=== PATIENT | female | born 1945 | race Caucasian/White ===

== ENCOUNTER 2019-08-14 08:06 | Emergency (ER) | payer MEDICARE ==
[2019-08-14] MEDS ORDERED: Zofran 4 MG/2 ML VIAL IV ONE (08:22)
[2019-08-14] MEDS ORDERED: Sodium Chloride 0.9% 1000 ML 1,000 ML IV STA (08:22)
[2019-08-14] MEDS ORDERED: BENTYL 20 MG PO ONE (08:24)
--- NOTE | 2019-08-14 08:31 | ERPHSYRPT ---
- History of Present Illness Time Seen by Provider: 08/14/19 08:22 Historian: patient, family Exam Limitations: no limitations Patient Subjective Stated Complaint: the patient is a 74-year-old female that has been persistent and for prior cholecystectomy, splenic repair secondary to a ruptured spleen from a mechanical fall, anxiety, depression, and asthma presents with chief complaint of nausea/vomiting and diarrhea that started around 1:30 this morning. Jitters and multiple episodes of vomiting and diarrhea that were nonbloody and nonbilious. The patient reportedly does not take anticoagulants or antiplatelet. She denies any recent sick contacts, fever , chills and started to experience diffuse abdominal pain after having multiple episodes of diarrhea and vomiting. She is to yesterday she is feeling otherwise fine until this morning when her complaints again. She's been taking anything for relief including climax her any pain medication. The abdominal pain is described as a cramping pain that is intermittent and diffuse and otherwise nonradiating. She denies any constipation, symptoms consistent with a UTI to include dysuria increased urinary frequency and bladder pressure. Her daughter accompanied her emergency department stay she decided to bring her mother evaluated after she informed her of her complaints when she woke up this morning. Timing/Duration: today Activities at Onset: none Quality: cramping Abdominal Pain Onset Location: generalized abdomen Pain Radiation: no radiation Severity of Pain-Max: mild Severity of Pain-Current: none Modifying Factors: Improves With: nothing Allergies/Adverse Reactions: No Known Drug Allergies Allergy (Unverified 08/14/19 08:31) Home Medications: Ascorbic Acid 500 mg [Vitamin C 500 MG] 1 each PO DAILY 08/14/19 [History] Bupropion HCl Xl 150 mg [Wellbutrin XL 150 MG] 150 mg PO DAILY 08/14/19 [ History] Bupropion HCl [Wellbutrin Xl] 300 mg PO DAILY 08/14/19 [History] Celecoxib 100 mg [celeBREX 100 MG] 200 mg PO DAILY PRN 08/14/19 [History] Cholecalciferol (Vitamin D3) [Vitamin D3] 1 each PO DAILY 08/14/19 [History] Citalopram Hydrobromide 20 mg* [ceLEXa 20 MG] 20 mg PO DAILY 08/14/19 [ History] Cyanocobalamin (Vitamin B-12) [Vitamin B12] 1 each PO DAILY 08/14/19 [History] Fluticasone/Vilanterol [Breo Ellipta 100-25 Mcg INH] 1 each IH DAILY 08/14/19 [ History] Magnesium Oxide 400 mg [Mag-Ox 400] 1 each PO DAILY 08/14/19 [History] Multivitamin [Multivitamins] 1 each PO DAILY 08/14/19 [History] Non-Formulary Drug [Non-Formulary Item] 1 each PO DAILY 08/14/19 [History] [place]-3 Fatty Acids/Fish Oil [Fish Oil 1,000 mg Capsule] 1 each PO DAILY [History] - Review of Systems Constitutional: No Fever, No Chills, No Fatigue Ears, Nose, & Throat: No Symptoms Respiratory: No Symptoms, No Cough, No Cyanosis, No Dyspnea Cardiac: No Chest Pain, No Palpitations, No Syncope Abdominal/Gastrointestinal: Abdominal Pain, Nausea, Vomiting, Diarrhea, No Constipation, No Hematemesis, No Hematochezia, No Melena Genitourinary Symptoms: No Dysuria, No Frequency, No Urgency Musculoskeletal: No Symptoms Skin: No Symptoms Neurological: No Symptoms, No Dizziness, No Focal Weakness, No Headache Hematologic/Lymphatic: No Symptoms - Past Medical History Pertinent Past Medical History: Yes Respiratory History: Asthma Psycho-Social History: Anxiety, Depression - Past Surgical History Past Surgical History: Yes Gastrointestinal: Cholecystectomy - Social History Smoking Status: Never smoker Exposure to second hand smoke: No Alcohol Use: None - Nursing Vital Signs Nursing Vital Signs: Initial Vital Signs Temperature 97.5 F 08/14/19 08:15 Pulse Rate 111 H 08/14/19 08:15 Respiratory Rate 16 08/14/19 08:15 Blood Pressure 131/70 08/14/19 08:15 O2 Sat by Pulse Oximetry 94 L 08/14/19 08:15 Pain Scale Pain Intensity 0 - Physical Exam General Appearance: no apparent distress, alert, other (Sitting up on the edge of the bed and appears to be in no obvious distress) Eye Exam: PERRL/EOMI, eyes nml inspection Ears, Nose, Throat Exam: normal ENT inspection, moist mucous membranes Neck Exam: normal inspection, supple Respiratory Exam: normal breath sounds, lungs clear, airway intact, No chest tenderness, No respiratory distress, No diminished breath sounds, No accessory muscle use, No prolonged expirations Cardiovascular Exam: normal heart sounds, normal peripheral pulses, tachycardia , capillary refill <2 sec, capillary refill 2-3 sec, edema, other (Bilateral 1-2 + pitting edema) Gastrointestinal/Abdomen Exam: soft, normal bowel sounds, distention, No tenderness, No ecchymosis, No rebound, No hernia Pelvic Exam: not done Rectal Exam: deferred Extremity Exam: normal inspection Neurologic Exam: alert, oriented x 3, cooperative, normal mood/affect Skin Exam: normal color, warm, dry, No rash, No petechiae, No jaundice, No abrasion SpO2 Interpretation: normal O2 Delivery: Room Air - Course Nursing assessment & vital signs reviewed: Yes EKG Interpreted by Me: RATE, Sinus Rhythm, NORMAL AXIS, Other (HR 92 bpm, LA 116 ms, QRS duration 82, QT/QTc 356/438 ms) Ordered Tests: Active Orders 24 hr Category Date Time Status EKG-ER Only STAT Care 08/14/19 08:22 Active IV Insertion STAT Care 08/14/19 08:23 Active PO Fluid Challenge STAT Care 08/14/19 09:15 Active BMP Stat Lab 08/14/19 08:40 Completed CBC W DIFF Stat Lab 08/14/19 08:40 Completed Hepatic Function Panel Stat Lab 08/14/19 08:40 Completed LIPASE Stat Lab 08/14/19 08:40 Completed Medication Summary Discontinued Medications Generic Name Dose Route Start Last Admin Trade Name Freq PRN Reason Stop Dose Admin Dicyclomine HCl 20 mg 08/14/19 08:24 08/14/19 09:26 Bentyl 20 Mg PO 08/14/19 08:25 20 mg ONCE ONE Administration Dicyclomine HCl Confirm 08/14/19 09:18 Bentyl 20 Mg Administered 08/14/19 09:19 Dose 20 mg .ROUTE .STK-MED ONE Sodium Chloride 1,000 mls @ 999 mls/hr 08/14/19 08:22 08/14/19 10:35 Sodium Chloride 0.9% 1000 Ml IV 08/14/19 09:22 Infused .Q1H1M STA Infusion Sodium Chloride Confirm 08/14/19 09:18 Sodium Chloride 0.9% 1000 Ml Administered 08/14/19 09:19 Dose 1,000 mls @ ud .ROUTE .STK-MED ONE Ondansetron HCl 4 mg 08/14/19 08:22 08/14/19 09:26 Zofran 4 Mg/2 Ml Vial IV 08/14/19 08:23 4 mg STAT ONE Administration Ondansetron HCl Confirm 08/14/19 09:18 Zofran 4 Mg/2 Ml Vial Administered 08/14/19 09:19 Dose 4 mg .ROUTE .K-MED ONE Lab/Rad Data: Laboratory Result Diagrams 08/14/19 08:40 08/14/19 08:40 Laboratory Results 08/14/19 08/14/19 Range/Units 08:40 08:40 WBC 10.4 (4.0-10.5) K/mm3 RBC 4.69 (4.1-5.4) M/mm3 Hgb 14.3 (12.0-16.0) gm/dl Hct 43.5 (35-47) % MCV 92.8 (78-100) fl MCH 30.5 (26-32) pg MCHC 32.9 (32-36) g/dl RDW 14.2 H (11.5-14.0) % Plt Count 74 L (150-450) K/mm3 MPV 13.0 H (6-9.5) fl Gran % 92.2 H (36.0-66.0) % Eos # (Auto) 0.04 (0-0.5) Absolute Lymphs (auto) 0.31 L (1.0-4.6) Absolute Monos (auto) 0.44 (0.0-1.3) Lymphocytes % 3.0 L (24.0-44.0) % Monocytes % 4.3 (0.0-12.0) % Eosinophils % 0.4 (0.00-5.0) % Basophils % 0.1 (0.0-0.4) % Absolute Granulocytes 9.55 H (1.4-6.9) Basophils # 0.01 (0-0.4) Sodium 140 (137-145) mmol/L Potassium 4.2 (3.5-5.1) mmol/L Chloride 105 (98-107) mmol/L Carbon Dioxide 23 (22-30) mmol/L Anion Gap 15.9 H (5-15) MEQ/L BUN 21 H (7-17) mg/dL Creatinine 0.72 (0.52-1.04) mg/dL Estimated GFR > 60.0 ML/MIN Glucose 183 H (74-106) mg/dL Calcium 9.3 (8.4-10.2) mg/dL Total Bilirubin 0.60 (0.2-1.3) mg/dL Direct Bilirubin 0.2 (0.0-0.4) mg/dL AST 24 (14-36) U/L ALT 22 (0-35) U/L Alkaline Phosphatase 85 (38-126) U/L Serum Total Protein 8.0 (6.3-8.2) g/dL Albumin 4.4 (3.5-5.0) g/dL Lipase 24 (23-300) U/L Slides for Path Review YES - Progress Progress: improved Progress Note: 08/14/19 09:04 nontoxic in appearance. The patient presents with nausea, vomiting and diarrhea is likely a bar of the right is given the onset of her symptoms and her exam, specifically benign abdominal exam to suggest peritonitis at this time. I will obtain screening labs and a form of a CBC, lipase, LFTs BMP and administer IV fluids and anti-medics for symptomatic relief. With the patient' s feel better able to tolerate by mouth on discharge her to follow with her primary care provider as an outpatient. I'll re-prescribe her very and likely sent home with a prescription for ondansetron. I do not suspect bacterial enteritis or c-diff colitis at this time. 08/14/19 09:06 08/14/19 10:07 the patient was reassessed upon her nausea completely resolved and she was tolerating by mouth. I updated her with her laboratory workup to include her thrombocytopenia need to follow with her primary care provider to have this monitored as an outpatient and the concern this could be a myelodysplastic disorder. Her thrombocytopenia could also be viral in etiology. The patient agreed with verbal he understood the discharge plan and stated she had an appointment with Dr. Inman today however she did not feel well enough to go to this appointment and would reschedule for later this month for the following month. Counseled pt/family regarding: lab results, diagnosis, need for follow-up - Departure Departure Disposition: Home Clinical Impression: Gastroenteritis, Thrombocytopenia Condition: Good Critical Care Time: No Referrals: BENJAMIN INMAN [Primary Care Provider] - Instructions: Nausea -- Adult, Vomiting -- Adult, Diarrhea in Adolescents and Adults, Platelet Count Test Additional Instructions: Please follow-up with her primary care provider to have your platelets monitored as an outpatient. Please continue drinking plenty of fluids in the form of water or Pedialyte for rehydration and take your medicine as prescribed. Prescriptions: Ondansetron [Ondansetron Odt] 4 mg PO Q6-8HPRN PRN #20 tab.rapdis PRN Reason: nausea and vomiting
[2019-08-14 08:47] LABS: Absolute Neutrophil Ct (ANC) 9.55 (1.4-6.9); BASOPHIL % 0.1 % (0.0-0.4); Basophil (Absolute #) 0.01 (0-0.4); Eosinophil % 0.4 % (0.00-5.0); Eosinophil (Absolute #) 0.04 (0-0.5); Hematocrit 43.5 % (35-47); Hemoglobin 14.3 gm/dl (12.0-16.0); Lymphocyte (Absolute #) 0.31 (1.0-4.6); Mean Cell Volume 92.8 fl (78-100); Mean Corpuscular Hemoglobin 30.5 pg (26-32); Mean Corpuscular Hgb Concent. 32.9 g/dl (32-36); Monocyte (Absolute #) 0.44 (0.0-1.3); Monocytes % 4.3 % (0.0-12.0); Neutrophil % 92.2 % (36.0-66.0); Platelet Count 74 K/mm3 (150-450); Red Blood Count 4.69 M/mm3 (4.1-5.4); Red Cell Distribution Width 14.2 % (11.5-14.0); White Blood Count 10.4 K/mm3 (4.0-10.5)
[2019-08-14 09:00] LABS: ALBUMIN 4.4 g/dL (3.5-5.0); ALKALINE PHOSPHATASE 85 U/L (38-126); ANION GAP 15.9 MEQ/L (5-15); BLOOD UREA NITROGEN 21 mg/dL (7-17); CHLORIDE 105 mmol/L (98-107); Calcium 9.3 mg/dL (8.4-10.2); Carbon Dioxide 23 mmol/L (22-30); Creatinine 1 0.72 mg/dL (0.52-1.04); Direct Bilirubin 0.2 mg/dL (0.0-0.4); Glucose 183 mg/dL (74-106); LIPASE 24 U/L (23-300); Potassium 4.2 mmol/L (3.5-5.1); SGOT/AST 24 U/L (14-36); SGPT/ALT 22 U/L (0-35); SODIUM 140 mmol/L (137-145)
[2019-08-14] MEDS ORDERED: Zofran 4 MG/2 ML VIAL ONE (09:18)
[2019-08-14] MEDS ORDERED: Sodium Chloride 0.9% 1000 ML 1,000 ML ONE (09:18)
[2019-08-14] MEDS ORDERED: BENTYL 20 MG ONE (09:18)
[2019-08-14 09:20] LABS: Slide Review 1 YES
[2019-08-14 10:41] VITALS: BP 125/66; PULSE 88; O2SAT 95
== END 2019-08-14 10:40 | disposition home or self-care (01) ==
LOC: ED 08:06
DX: K52.9 Noninfective gastroenteritis and colitis, unspecified (principal); D69.6 Thrombocytopenia, unspecified; Z79.899 Other long term (current) drug therapy; R10.9 Unspecified abdominal pain; R11.2 Nausea with vomiting, unspecified
CPT/HCPCS: 36415; 80048; 80076; 83690; 85025; 93005; 96360; 96374; 99284; J2405; A9270-GY

== ENCOUNTER 2019-09-15 04:31 | Emergency (ER) | payer MEDICARE ==
[2019-09-15] MEDS ORDERED: Hydromorphone 1 mg/ml Ampule IM ONE (05:16)
--- NOTE | 2019-09-15 05:16 | ERPHSYRPT ---
- History of Present Illness Source: patient, family Exam Limitations: no limitations Patient Subjective Stated Complaint: pt states she tripped over a chair on the ground, fell, and hit her rt ribs on a bench. denies other injury Triage Nursing Assessment: pt alert and oriented, asnwers questions approp. pt back to room per wheelchair. transfers to stretcher per self with slow steady gait. respirations nonlabored with lungs cta. redness, bruising, and tenderness noted to area under rt axilla. pt reports increased pain wtih inhalation. Occurred: just prior to arrival, this morning Reason for Fall: tripped (over folding chair) Injuries/Pain Location: back (right posterolateral ribs and scapula) Severity of Pain-Max: moderate Severity of Pain-Current: moderate Modifying Factors: Improves With: movement, other (deep breaths) Associated Symptoms (Fall): back pain, muscle spasms Hx Tetanus, Diphtheria Vaccination/Date Given: Yes Hx Influenza Vaccination/Date Given: Yes Hx Pneumococcal Vaccination/Date Given: Yes Immunizations Up to Date: Yes <PRABHJOT CHAVIRA - Last Filed: 09/15/19 06:47> <JAMES MADRIGAL - Last Filed: 09/15/19 08:35> - History of Present Illness Time Seen by Provider: 09/15/19 04:50 Physician History: 74 y/o white female tripped over chair outside her home this am. she then hit right posterolateral ribs and scapula on bench. pts complaints of pain not soa. no anticoag tx (PRABHJOT CHAVIRA) Allergies/Adverse Reactions: No Known Drug Allergies Allergy (Unverified 08/14/19 08:31) Home Medications: Ascorbic Acid 500 mg [Vitamin C 500 MG] 1 each PO DAILY 08/14/19 [History] Bupropion HCl Xl 150 mg [Wellbutrin XL 150 MG] 150 mg PO DAILY 08/14/19 [ History] Bupropion HCl [Wellbutrin Xl] 300 mg PO DAILY 08/14/19 [History] Celecoxib 100 mg [celeBREX 100 MG] 200 mg PO DAILY PRN 08/14/19 [History] Cholecalciferol (Vitamin D3) [Vitamin D3] 1 each PO DAILY 08/14/19 [History] Citalopram Hydrobromide 20 mg* [ceLEXa 20 MG] 20 mg PO DAILY 08/14/19 [ History] Cyanocobalamin (Vitamin B-12) [Vitamin B12] 1 each PO DAILY 08/14/19 [History] Fluticasone/Vilanterol [Breo Ellipta 100-25 Mcg INH] 1 each IH DAILY 08/14/19 [ History] Magnesium Oxide 400 mg [Mag-Ox 400] 1 each PO DAILY 08/14/19 [History] Multivitamin [Multivitamins] 1 each PO DAILY 08/14/19 [History] Non-Formulary Drug [Non-Formulary Item] 1 each PO DAILY 08/14/19 [History] [place]-3 Fatty Acids/Fish Oil [Fish Oil 1,000 mg Capsule] 1 each PO DAILY [History] - Review of Systems Constitutional: No Symptoms Eyes: No Symptoms Ears, Nose, & Throat: No Symptoms Respiratory: No Symptoms Cardiac: No Symptoms Abdominal/Gastrointestinal: No Symptoms Genitourinary Symptoms: No Symptoms Musculoskeletal: Back Pain, Fall Skin: No Symptoms Neurological: No Symptoms Psychological: No Symptoms Endocrine: No Symptoms Hematologic/Lymphatic: No Symptoms Immunological/Allergic: No Symptoms All Other Systems: Reviewed and Negative <PRABHJOT CHAVIRA - Last Filed: 09/15/19 06:47> - Past Medical History Pertinent Past Medical History: Yes Neurological History: No Pertinent History ENT History: No Pertinent History Cardiac History: No Pertinent History Respiratory History: Asthma Endocrine Medical History: No Pertinent History Musculoskeletal History: Arthritis GI Medical History: No Pertinent History History: No Pertinent History Psycho-Social History: Anxiety, Depression Female Reproductive Disorders: No Pertinent History - Past Surgical History Past Surgical History: Yes Neuro Surgical History: No Pertinent History Cardiac: No Pertinent History Respiratory: No Pertinent History Gastrointestinal: Cholecystectomy Genitourinary: No Pertinent History Musculoskeletal: Orthopedic Surgery Female Surgical History: No Pertinent History Other Surgical History: Spleen repaired, knee replacements, pt states fluid drained from lungs - Social History Smoking Status: Former smoker Exposure to second hand smoke: No Alcohol Use: None Drug Use: none Patient Lives Alone: No <PRABHJOT CHAVIRA - Last Filed: 09/15/19 06:47> - [place] Coma Score Best Eye Response (Jerald): (4) open spontaneously Best Verbal Response (Jeradl): (5) oriented Best Motor Response (Jerald): (6) obeys commands Jerald Total: 15 - Physical Exam General Appearance: moderate distress, alert, anxiety, obese Head Injury: no evidence of injury Eye Exam: PERRL/EOMI, eyes nml inspection ENT Exam: airway nml, nml ext.inspection Neck Exam: supple, trachea midline, full range of motion, normal alignment, normal inspection Respiratory/Chest Exam: normal breath sounds, ecchymosis (right posterolateral rib), rib tenderness, No chest tenderness, No respiratory distress, No decreased breath sounds, No subcutaneous emphysema Cardiovascular Exam: normal heart sounds, regular rate/rhythm Gastrointestinal Exam: soft, normal bowel sounds, No tenderness Rectal Exam: not done Back Exam: normal inspection, normal range of motion, muscle spasm, No CVA tenderness, No vertebral tenderness Extremity Exam: pelvis stable, limited range of motion (posterior right scapula) , 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) Neurologic Exam: alert, oriented x 3, cooperative, 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 as 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 Skin Exam: normal color, warm, dry SpO2 Interpretation: normal SpO2: 97 O2 Delivery: Room Air <PRABHJOT CHAVIRA - Last Filed: 09/15/19 06:47> - Nursing Vital Signs Nursing Vital Signs: Initial Vital Signs Temperature 97.8 F 09/15/19 04:40 Pulse Rate 92 H 09/15/19 04:40 Respiratory Rate 18 09/15/19 04:40 Blood Pressure 166/101 09/15/19 04:40 O2 Sat by Pulse Oximetry 97 09/15/19 04:40 Pain Scale Pain Intensity 5 Procedures <PRABHJOT CHAVIRA - Last Filed: 09/15/19 06:47> - Chest Tube Chest Tube Location: Right Size of [place] Tube (cm): 32 Chest Tube Procedure: betadine prep Anesthesia: 1% Lidocaine w/ Epi Volume Anesthetic (ccs): other Yusuf of Air [place]: Yes Tube Drainage: blood Tube Sutured to Skin: Yes Post Procedure CXR?: Yes <JAMES MADRIGAL - Last Filed: 09/15/19 08:35> - Chest Tube Progress: Tube confirmed by XR. Appears to be in good position. Chest tube was placed by Dr. James Madrigal (MADRIGAL,JAMES F.) - Course Nursing assessment & vital signs reviewed: Yes <PRABHJOT CHAVIRA - Last Filed: 09/15/19 06:47> Ordered Tests: Active Orders 24 hr Category Date Time Status IV Insertion STAT Care 09/15/19 07:08 Active CHEST 1 VIEW (PORTABLE) Stat Exams 09/15/19 07:27 Taken CHEST WITHOUT CONTRAST [CT] Stat Exams 09/15/19 05:23 Completed UPPER EXTREMITY W/O CONTRAST [CT] Stat Exams 09/15/19 05:23 Completed CBC W DIFF Stat Lab 09/15/19 07:10 Completed CMP Stat Lab 09/15/19 07:10 Completed PT INR [PROTIME WITH INR] Stat Lab 09/15/19 07:10 Completed Incentive Spirometry UD RT 09/15/19 06:55 Completed Medication Summary Discontinued Medications Generic Name Dose Route Start Last Admin Trade Name Freq PRN Reason Stop Dose Admin Hydromorphone HCl Confirm 09/15/19 05:19 Hydromorphone 1 Mg/Ml Ampule Administered 09/15/19 05:20 Dose 1 mg .ROUTE .STK-MED ONE Hydromorphone HCl 0.5 mg 09/15/19 05:16 09/15/19 05:36 Hydromorphone 1 Mg/Ml Ampule IM 09/15/19 05:17 0.5 mg STAT ONE Administration Ketorolac Tromethamine 60 mg 09/15/19 06:34 09/15/19 06:43 Toradol 30 Mg Injection IM 09/15/19 06:35 60 mg STAT ONE Administration Ketorolac Tromethamine Confirm 09/15/19 06:37 Toradol 30 Mg Injection Administered 09/15/19 06:38 Dose 60 mg .ROUTE .STK-MED ONE Lidocaine/Epinephrine Confirm 09/15/19 07:24 Xylocaine 1%/Epi 1:[id number] Mdv 20 Ml Administered 09/15/19 07:25 Dose 10 ml .ROUTE .STK-MED ONE Lorazepam Confirm 09/15/19 05:19 Ativan 2 Mg/1 Ml Vial Administered 09/15/19 05:20 Dose 2 mg .ROUTE .STK-MED ONE Lorazepam 1 mg 09/15/19 05:17 09/15/19 05:36 Ativan 2 Mg/1 Ml Vial IM 09/15/19 05:18 1 mg STAT ONE Administration Ondansetron HCl Confirm 09/15/19 05:19 Zofran Odt 4 Mg Administered 09/15/19 05:20 Dose 4 mg .ROUTE .STK-MED ONE Ondansetron HCl 4 mg 09/15/19 05:18 09/15/19 05:36 Zofran Odt 4 Mg PO 09/15/19 05:19 4 mg STAT ONE Administration Lab/Rad Data: Laboratory Result Diagrams 09/15/19 07:10 09/15/19 07:10 Laboratory Results 09/15/19 09/15/19 09/15/19 Range/Units 07:10 07:10 07:10 WBC 10.6 H (4.0-10.5) K/mm3 RBC 4.26 (4.1-5.4) M/mm3 Hgb 13.2 (12.0-16.0) gm/dl Hct 39.7 (35-47) % MCV 93.2 (78-100) fl MCH 31.0 (26-32) pg MCHC 33.2 (32-36) g/dl RDW 14.3 H (11.5-14.0) % Plt Count 84 L (150-450) K/mm3 MPV 11.9 H (7.5-11.0) fl Gran % 81.2 H (36.0-66.0) % Eos # (Auto) 0.08 (0-0.5) Absolute Lymphs (auto) 1.11 (1.0-4.6) Absolute Monos (auto) 0.78 (0.0-1.3) Lymphocytes % 10.5 L (24.0-44.0) % Monocytes % 7.4 (0.0-12.0) % Eosinophils % 0.8 (0.00-5.0) % Basophils % 0.1 (0.0-0.4) % Absolute Granulocytes 8.58 H (1.4-6.9) Basophils # 0.01 (0-0.4) PT 11.6 (9.95-12.35) SECONDS INR 1.03 (0.8-3.0) Sodium 137 (137-145) mmol/L Potassium 4.3 (3.5-5.1) mmol/L Chloride 103 (98-107) mmol/L Carbon Dioxide 27 (22-30) mmol/L Anion Gap 11.7 (5-15) MEQ/L BUN 18 H (7-17) mg/dL Creatinine 0.83 (0.52-1.04) mg/dL Estimated GFR > 60.0 ML/MIN Glucose 160 H (74-106) mg/dL Calcium 9.4 (8.4-10.2) mg/dL Total Bilirubin 0.40 (0.2-1.3) mg/dL AST 23 (14-36) U/L ALT 21 (0-35) U/L Alkaline Phosphatase 92 (38-126) U/L Serum Total Protein 7.5 (6.3-8.2) g/dL Albumin 4.1 (3.5-5.0) g/dL - Progress Progress: improved Counseled pt/family regarding: diagnosis, need for follow-up <PRABHJOT CHAVIRA - Last Filed: 09/15/19 06:47> <JAMES MADRIGAL - Last Filed: 09/15/19 08:35> - Progress Progress Note: 09/15/19 06:56 transfer of care to dr. madrigal. he accepts pt in transfer at shift change ( PRABHJOT CHAVIRA) 09/15/19 08:23 Patient has right hemothorax and PTX. Given this, patient will need to be transferred to trauma center. I discussed with Dr. Louie of trauma surgery at [facility]. He requested we place a chest tube prior to transfer. I discussed risks and benefits of a chest tube with the patient. The patient and the family consented to the risks of the procedure. A chest tube was placed by myself at bedside with blood and air return. Patient continued to be stable and was transferred without difficulty. ED critical care statement As staff physician, I have provided critical care. Time: 45 mins Criteria for critical illness: multi-system trauma, tension pneumothorax, hemothorax Treatment and management provided include: Coordination of management with ETC care team, consultants, and inpatient care team. [id number] assessment of condition and response to therapy. Review and interpretation of emergent diagnostic testing. Medical chart review and completion. Direction and immediate supervision of the following therapy: Critical care was time spent personally by me on the following activities: blood draw for specimens, development of treatment plan with patient or surrogate, discussions with consultants, discussions with primary provider, interpretation of cardiac output measurements, evaluation of patient&# 39;s response to treatment, examination of patient, obtaining history from patient or surrogate, ordering and performing treatments and interventions, ordering and review of laboratory studies, ordering and review of radiographic studies, pulse oximetry, re-evaluation of patient's condition and review of old charts. This time was independent of all procedures performed. James Madrigal (JAMES MADRIGAL) - Departure Departure Disposition: Home Critical Care Time: No <PRABHJOT CHAVIRA. - Last Filed: 09/15/19 06:47> - Departure Departure Disposition: Transfer Critical Care Time(excluding separately billable procedures): Critical 30-74 mins (I performed critical care time - Dr. James Madrigal) <JAMES MADRIGAL - Last Filed: 09/15/19 08:35> - Departure Clinical Impression: Trauma, Tension pneumothorax, Hemothorax with pneumothorax, traumatic Condition: Stable Referrals: BENJAMIN HERNÁNDEZ [Primary Care Provider] - Instructions: Rib Fracture (DC)
[2019-09-15] MEDS ORDERED: Ativan 2 MG/1 ML VIAL IM ONE (05:17)
[2019-09-15] MEDS ORDERED: ZOFRAN ODT 4 MG PO ONE (05:18)
[2019-09-15] MEDS ORDERED: Ativan 2 MG/1 ML VIAL ONE (05:19)
[2019-09-15] MEDS ORDERED: ZOFRAN ODT 4 MG ONE (05:19)
[2019-09-15] MEDS ORDERED: Hydromorphone 1 mg/ml Ampule ONE (05:19)
[2019-09-15] MEDS ORDERED: TORAdol 30 mg Injection IM ONE (06:34)
[2019-09-15] MEDS ORDERED: TORAdol 30 mg Injection ONE (06:37)
--- NOTE | 2019-09-15 07:19 | XRAY ---
Indication: Right scapular pain following fall. Multiple contiguous axial images obtained through the right shoulder. Two-dimensional sagittal and coronal reformatted images obtained. Comparison: None Osseous structures demineralized consistent with patient's age. Right 4-8 rib fractures and cardiopulmonary findings further detailed on CT chest study of the same day. Moderate AC degenerative hypertrophy. Remaining right shoulder is negative for acute fracture, dislocation, or suspicious bony lesions. Visualized noncontrasted soft tissues unremarkable. Impression: Osteopenia and AC degenerative arthropathy. Comment: Preliminary interpretation was made by [facility]. No critical discrepancy.
[2019-09-15 07:21] LABS: Absolute Neutrophil Ct (ANC) 8.58 (1.4-6.9); BASOPHIL % 0.1 % (0.0-0.4); Basophil (Absolute #) 0.01 (0-0.4); Eosinophil % 0.8 % (0.00-5.0); Eosinophil (Absolute #) 0.08 (0-0.5); Hematocrit 39.7 % (35-47); Hemoglobin 13.2 gm/dl (12.0-16.0); Lymphocyte (Absolute #) 1.11 (1.0-4.6); Lymphocytes % 10.5 % (24.0-44.0); Mean Cell Volume 93.2 fl (78-100); Mean Corpuscular Hgb Concent. 33.2 g/dl (32-36); Mean Platelet Volume 11.9 fl (7.5-11.0); Monocyte (Absolute #) 0.78 (0.0-1.3); Monocytes % 7.4 % (0.0-12.0); Neutrophil % 81.2 % (36.0-66.0); Platelet Count 84 K/mm3 (150-450); Red Blood Count 4.26 M/mm3 (4.1-5.4); Red Cell Distribution Width 14.3 % (11.5-14.0); White Blood Count 10.6 K/mm3 (4.0-10.5)
[2019-09-15] MEDS ORDERED: XYLOCAINE 1%/Epi 1:100000 MDV 20 ML ONE (07:24)
--- NOTE | 2019-09-15 07:27 | XRAY ---
Indication: Right scapular pain following fall. Multiple contiguous axial images obtained through the chest without contrast. Comparison: None Bony thorax demonstrate some osteopenia and mild/moderate degenerative changes throughout the spine. Mild displaced right 4-8 posterior lateral rib fractures with minimal adjacent chest wall emphysema and small right hemothorax. No pneumothorax. Left lower lobe demonstrates small effusion with mild compressive atelectasis. Remaining lungs demonstrates mild scattered fibrosis/scarring greatest in both lung apices. A few incidental calcified granulomas, largest right lower lobe. Heart is borderline enlarged without pericardial effusion. Aorta is minimally arteriosclerotic without aneurysmal dilatation. No pathologic mediastinal lymphadenopathy. Limited upper abdomen demonstrates epigastric and right upper quadrant surgical clips. Impression: 1. Right 4-8 acute rib fractures as detailed with minimal chest wall emphysema and small hemothorax. 2. Borderline cardiomegaly and small nonspecific left effusion. 3. Incidental osteopenia, bony degenerative changes, and evidence for old granulomatous disease. Comment: Preliminary interpretation was made by [facility]. No critical discrepancy.
[2019-09-15 07:32] LABS: INR 1.03 (0.8-3.0); PROTIME 11.6 SECONDS (9.95-12.35)
[2019-09-15 07:36] LABS: ALBUMIN 4.1 g/dL (3.5-5.0); ALKALINE PHOSPHATASE 92 U/L (38-126); ANION GAP 11.7 MEQ/L (5-15); BLOOD UREA NITROGEN 18 mg/dL (7-17); CHLORIDE 103 mmol/L (98-107); Calcium 9.4 mg/dL (8.4-10.2); Carbon Dioxide 27 mmol/L (22-30); Creatinine 1 0.83 mg/dL (0.52-1.04); Glucose 160 mg/dL (74-106); Potassium 4.3 mmol/L (3.5-5.1); SGOT/AST 23 U/L (14-36); SGPT/ALT 21 U/L (0-35); SODIUM 137 mmol/L (137-145); Total Protein 7.5 g/dL (6.3-8.2)
[2019-09-15 08:21] VITALS: BP 150/77
[2019-09-15 09:08] VITALS: PULSE 98; O2SAT 98
[2019-09-15 10:48] LABS: Slide Review 1 YES
--- NOTE | 2019-09-15 19:14 | XRAY ---
Indication: Chest tube placement. Comparison: None Limited portable chest does not include the entire left hemithorax and heart. Right chest tube tip projects right suprahilar with small apical pneumothorax, right 4-8 acute rib fractures, tiny right chest wall subcutaneous emphysema, moderate right AC degenerative arthropathy, and mild degenerative changes throughout the thoracolumbar spine.
== END 2019-09-15 09:00 | disposition short-term general hospital (02) ==
LOC: ED 04:31
DX: J93.0 Spontaneous tension pneumothorax (principal); S27.2XXA Traumatic hemopneumothorax, initial encounter; W01.198A Fall on same level from slipping, tripping and stumbling with subsequent striking against other object, initial encounter; R07.81 Pleurodynia; Z79.899 Other long term (current) drug therapy
CPT/HCPCS: 32551; 36000; 36415; 71045; 71250; 73200; 80053; 85025; 85610; 96372; 99285; 99291; J1170; J1885; J2060; Q0162

== ENCOUNTER 2019-10-15 01:47 | Inpatient (IN) | payer MEDICARE ==
[2019-10-15] MEDS ORDERED: Sodium Chloride 0.9% 1000 ML 1,000 ML IV STA (01:57)
[2019-10-15] MEDS ORDERED: solu-MEDROL 125 MG IV ONE (01:57)
[2019-10-15] MEDS ORDERED: DUONEB 0.5-3 MG/3 ml Neb IH ONE ×2 (01:57→02:03)
[2019-10-15] MEDS ORDERED: TYLENOL 325 MG PO STA (01:59)
--- NOTE | 2019-10-15 02:06 | ERPHSYRPT ---
- History of Present Illness Time Seen by Provider: 10/15/19 01:55 Source: patient, family, EMS Exam Limitations: no limitations Physician History: 74 years old female with history of asthma,, recent fall with multiple rib fractures status post surgical fixation, recently discharged from rehabilitation 2 days ago presented by EMS with chief complaint of fever and shortness of breath.. Patient reports initially started as upper respiratory congestion followed by cough and shortness of breath for the last 4 or 5 days, she's been started on Zithromax 2 days ago. MAXIMUM TEMPERATURE 100.3. Shortness of breath gets worse with minimal exertion and not short of breath even at fasting. patient reports coughing up yellow-green thick sputum. Timing/Duration: day(s) (3), gradual onset, worse Activities at Onset: activity Severity of Dyspnea-Max: moderate Severity of Dyspnea-Current: moderate Possible Cause: illness exposure Modifying Factors: Improves With: albuterol nebulizer, coughing Associated Symptoms: heaviness, No leg swelling Allergies/Adverse Reactions: No Known Drug Allergies Allergy (Unverified 08/14/19 08:31) Home Medications: Ascorbic Acid 500 mg [Vitamin C 500 MG] 1 each PO DAILY 08/14/19 [History] Bupropion HCl Xl 150 mg [Wellbutrin XL 150 MG] 150 mg PO DAILY 08/14/19 [ History] Bupropion HCl [Wellbutrin Xl] 300 mg PO DAILY 08/14/19 [History] Celecoxib 100 mg [celeBREX 100 MG] 200 mg PO DAILY PRN 08/14/19 [History] Cholecalciferol (Vitamin D3) [Vitamin D3] 1 each PO DAILY 08/14/19 [History] Citalopram Hydrobromide 20 mg* [ceLEXa 20 MG] 20 mg PO DAILY 08/14/19 [ History] Cyanocobalamin (Vitamin B-12) [Vitamin B12] 1 each PO DAILY 08/14/19 [History] Fluticasone/Vilanterol [Breo Ellipta 100-25 Mcg INH] 1 each IH DAILY 08/14/19 [ History] Magnesium Oxide 400 mg [Mag-Ox 400] 1 each PO DAILY 08/14/19 [History] Multivitamin [Multivitamins] 1 each PO DAILY 08/14/19 [History] Non-Formulary Drug [Non-Formulary Item] 1 each PO DAILY 08/14/19 [History] [place]-3 Fatty Acids/Fish Oil [Fish Oil 1,000 mg Capsule] 1 each PO DAILY [History] Hx Tetanus, Diphtheria Vaccination/Date Given: Yes Hx Influenza Vaccination/Date Given: Yes Hx Pneumococcal Vaccination/Date Given: Yes - Review of Systems Constitutional: Fever, Chills, Fatigue, Malaise Eyes: Photophobia Ears, Nose, & Throat: Nose Congestion, Nose Discharge Respiratory: Cough, Wheezing Cardiac: No Symptoms Abdominal/Gastrointestinal: Nausea Genitourinary Symptoms: No Symptoms Musculoskeletal: Myalgias Skin: No Symptoms Neurological: No Symptoms Endocrine: No Symptoms Hematologic/Lymphatic: No Symptoms Immunological/Allergic: No Symptoms - Past Medical History Pertinent Past Medical History: Yes Neurological History: No Pertinent History ENT History: No Pertinent History Cardiac History: No Pertinent History Respiratory History: Asthma Endocrine Medical History: No Pertinent History Musculoskeletal History: Arthritis GI Medical History: No Pertinent History History: No Pertinent History Psycho-Social History: Anxiety, Depression Female Reproductive Disorders: No Pertinent History - Past Surgical History Past Surgical History: Yes Neuro Surgical History: No Pertinent History Cardiac: No Pertinent History Respiratory: No Pertinent History Gastrointestinal: Cholecystectomy Genitourinary: No Pertinent History Musculoskeletal: Orthopedic Surgery Female Surgical History: No Pertinent History Other Surgical History: Spleen repaired, knee replacements, pt states fluid drained from lungs - Social History Smoking Status: Former smoker Exposure to second hand smoke: No Alcohol Use: None Drug Use: none Patient Lives Alone: No - Nursing Vital Signs Nursing Vital Signs: Initial Vital Signs Temperature 100.0 F 10/15/19 01:49 Pulse Rate 128 H 10/15/19 01:49 Respiratory Rate 25 H 10/15/19 01:49 Blood Pressure 148/68 10/15/19 01:49 O2 Sat by Pulse Oximetry 90 L 10/15/19 01:49 Pain Scale Pain Intensity 0 - Physical Exam General Appearance: no apparent distress, mild distress, alert Eye Exam: eyes nml inspection Ears, Nose, Throat Exam: hearing grossly normal, sinus pain/drainage, nasal congestion, pharyngeal erythema Neck Exam: normal inspection, non-tender, supple, full range of motion Respiratory Exam: normal breath sounds, chest tenderness, diminished breath sounds, wheezing Cardiovascular/Chest Exam: normal heart sounds, tachycardia Abdominal/Gastrointestinal Exam: soft, normal bowel sounds, No tenderness, No distention Extremity Exam: non-tender, normal range of motion, normal inspection Neurologic Exam: alert, oriented x 3, cooperative Skin Exam: normal color SpO2 Interpretation: normal SpO2: 90 O2 Delivery: Room Air - Course Nursing assessment & vital signs reviewed: Yes EKG Interpreted by Me: RATE ([id number]), Sinus Rhythm, NORMAL AXIS, NORMAL INTERVALS, Non-specific ST Changes Ordered Tests: Active Orders 24 hr Category Date Time Status Laundry Aid STAT Care 10/15/19 01:58 Active EKG-ER Only STAT Care 10/15/19 01:57 Active IV Insertion STAT Care 10/15/19 01:57 Active CHEST 1 VIEW (PORTABLE) Stat Exams 10/15/19 01:58 Taken BLOOD CULTURE Stat Lab 10/15/19 02:34 Received CBC W DIFF Stat Lab 10/15/19 02:20 Completed CMP Stat Lab 10/15/19 02:20 Completed Lactic Acid Stat Lab 10/15/19 02:12 Completed MAGNESIUM Stat Lab 10/15/19 02:20 Completed NT PRO BNP Stat Lab 10/15/19 02:20 Completed TROPONIN Q3H Lab 10/15/19 02:20 Completed TROPONIN Q3H Lab 10/15/19 05:00 Ordered TROPONIN Q3H Lab 10/15/19 08:00 Ordered TROPONIN Q3H Lab 10/15/19 11:00 Ordered TROPONIN Q3H Lab 10/15/19 14:00 Ordered UA W/RFX UR CULTURE Stat Lab 10/15/19 01:58 Uncollected Peak Expiratory Flow Rate ONCE RT 10/15/19 02:24 Active Respiratory Therapy Assessment DAILY RT 10/15/19 02:25 Active Medication Summary Generic Name Dose Route Start Last Admin Trade Name Freq PRN Reason Stop Dose Admin Sodium Chloride 1,000 mls @ 499 mls/hr 10/15/19 01:57 10/15/19 02:35 Sodium Chloride 0.9% 1000 Ml IV 10/15/19 03:57 499 mls/hr .Q2H1M STA Administration Levofloxacin/Dextrose 750 mg in 150 mls @ 100 mls/hr 10/15/19 02:56 Levofloxacin 750mg/150ml D5w IV 10/15/19 04:25 STAT STA Discontinued Medications Generic Name Dose Route Start Last Admin Trade Name Freq PRN Reason Stop Dose Admin Acetaminophen 650 mg 10/15/19 01:59 10/15/19 02:36 Tylenol 325 Mg PO 10/15/19 02:00 650 mg STAT STA Administration Acetaminophen Confirm 10/15/19 02:12 Tylenol 325 Mg Administered 10/15/19 02:13 Dose 650 mg .ROUTE .STK-MED ONE Albuterol/Ipratropium 3 ml 10/15/19 01:57 10/15/19 02:22 Duoneb 0.5-3 Mg/3 Ml Neb IH 10/15/19 01:58 3 ml STAT ONE Administration Albuterol/Ipratropium Confirm 10/15/19 02:03 Duoneb 0.5-3 Mg/3 Ml Neb Administered 10/15/19 02:04 Dose 3 ml IH .STK-MED ONE Sodium Chloride Confirm 10/15/19 02:12 Sodium Chloride 0.9% 1000 Ml Administered 10/15/19 02:13 Dose 1,000 mls @ ud .ROUTE .STK-MED ONE Methylprednisolone Sodium Succinate 125 mg 10/15/19 01:57 10/15/19 02:36 Solu-Medrol 125 Mg IV 10/15/19 01:58 125 mg STAT ONE Administration Methylprednisolone Sodium Succinate Confirm 10/15/19 02:12 Solu-Medrol 125 Mg Administered 10/15/19 02:13 Dose 125 mg .ROUTE .STK-MED ONE Lab/Rad Data: Laboratory Result Diagrams 10/15/19 02:20 10/15/19 02:20 Laboratory Results 10/15/19 10/15/19 10/15/19 Range/Units 02:20 02:20 02:20 WBC (4.0-10.5) K/mm3 RBC (4.1-5.4) M/mm3 Hgb (12.0-16.0) gm/dl Hct (35-47) % MCV (78-100) fl MCH (26-32) pg MCHC (32-36) g/dl RDW (11.5-14.0) % Plt Count (150-450) K/mm3 MPV (7.5-11.0) fl Gran % (36.0-66.0) % Eos # (Auto) (0-0.5) Absolute Lymphs (auto) (1.0-4.6) Absolute Monos (auto) (0.0-1.3) Lymphocytes % (24.0-44.0) % Monocytes % (0.0-12.0) % Eosinophils % (0.00-5.0) % Basophils % (0.0-0.4) % Absolute Granulocytes (1.4-6.9) Basophils # (0-0.4) Sodium 134 L (137-145) mmol/L Potassium 4.2 (3.5-5.1) mmol/L Chloride 99 (98-107) mmol/L Carbon Dioxide 24 (22-30) mmol/L Anion Gap 14.6 (5-15) MEQ/L BUN 12 (7-17) mg/dL Creatinine 0.61 (0.52-1.04) mg/dL Estimated GFR > 60.0 ML/MIN Glucose 182 H (74-106) mg/dL Lactic Acid (0.4-2.0) Calcium 9.0 (8.4-10.2) mg/dL Magnesium 1.6 (1.6-2.3) mg/dL Total Bilirubin 0.70 (0.2-1.3) mg/dL AST 19 (14-36) U/L ALT 16 (0-35) U/L Alkaline Phosphatase 144 H (38-126) U/L Troponin I < 0.012 (0.000-0.034) ng/mL NT-Pro-B Natriuret Pep 214 (0-1800) pg/mL Serum Total Protein 8.1 (6.3-8.2) g/dL Albumin 4.1 (3.5-5.0) g/dL Influenza Type A Ag NEGATIVE (NEGATIVE) Influenza Type B Ag NEGATIVE (NEGATIVE) RSV (PCR) POSITIVE (Negative) 10/15/19 10/15/19 Range/Units 02:20 02:12 WBC 10.0 (4.0-10.5) K/mm3 RBC 4.11 (4.1-5.4) M/mm3 Hgb 12.1 (12.0-16.0) gm/dl Hct 37.4 (35-47) % MCV 91.0 (78-100) fl MCH 29.4 (26-32) pg MCHC 32.4 (32-36) g/dl RDW 14.6 H (11.5-14.0) % Plt Count 82 L (150-450) K/mm3 MPV 12.2 H (7.5-11.0) fl Gran % 83.2 H (36.0-66.0) % Eos # (Auto) 0.02 (0-0.5) Absolute Lymphs (auto) 0.64 L (1.0-4.6) Absolute Monos (auto) 1.01 (0.0-1.3) Lymphocytes % 6.4 L (24.0-44.0) % Monocytes % 10.1 (0.0-12.0) % Eosinophils % 0.2 (0.00-5.0) % Basophils % 0.1 (0.0-0.4) % Absolute Granulocytes 8.35 H (1.4-6.9) Basophils # 0.01 (0-0.4) Sodium (137-145) mmol/L Potassium (3.5-5.1) mmol/L Chloride (98-107) mmol/L Carbon Dioxide (22-30) mmol/L Anion Gap (5-15) MEQ/L BUN (7-17) mg/dL Creatinine (0.52-1.04) mg/dL Estimated GFR ML/MIN Glucose (74-106) mg/dL Lactic Acid 1.1 (0.4-2.0) Calcium (8.4-10.2) mg/dL Magnesium (1.6-2.3) mg/dL Total Bilirubin (0.2-1.3) mg/dL AST (14-36) U/L ALT (0-35) U/L Alkaline Phosphatase (38-126) U/L Troponin I (0.000-0.034) ng/mL NT-Pro-B Natriuret Pep (0-1800) pg/mL Serum Total Protein (6.3-8.2) g/dL Albumin (3.5-5.0) g/dL Influenza Type A Ag (NEGATIVE) Influenza Type B Ag (NEGATIVE) RSV (PCR) (Negative) - Progress Progress: re-examined Air Movement: fair Progress Note: patient was in mild respiratory distress on presentation. Given breathing treatment and steroid, placed on oxygen. Chest x-ray showed multiple old rib fractures with some consolidative changes on the right, started on Levaquin and station is not getting better on Zithromax. She has normal white count and lactate. She is also given a small bolus of fluid and her heart rate is better. The results and improved. Patient is feeling better on reevaluation. Discussed with Dr. Silverman & patient is being admitted for observation. 10/15/19 03:08 Blood Culture(s) Obtained: Yes Antibiotics given: Yes Discussed with : [place] Will see patient in: hospital (observation) Counseled pt/family regarding: lab results, diagnosis, rad results - Departure Departure Disposition: Observation Clinical Impression: Pneumonia Qualifiers: Pneumonia type: due to unspecified organism Laterality: right Lung location: unspecified part of lung Qualified Code(s): J18.9 - Pneumonia, unspecified organism Ribs, multiple fractures Qualifiers: Encounter type: subsequent encounter Fracture type: closed Laterality: right Fracture healing: with routine healing Qualified Code(s): S22.41XD - Multiple fractures of ribs, right side, subsequent encounter for fracture with routine healing Condition: Stable Critical Care Time: Yes Critical Care Time(excluding separately billable procedures): Critical 30-74 mins Referrals: BENJAMIN HERNÁNDEZ [Primary Care Provider] -
[2019-10-15] MEDS ORDERED: Sodium Chloride 0.9% 1000 ML 1,000 ML ONE (02:12)
[2019-10-15] MEDS ORDERED: TYLENOL 325 MG ONE (02:12)
[2019-10-15] MEDS ORDERED: solu-MEDROL 125 MG ONE (02:12)
[2019-10-15 02:24] LABS: Absolute Neutrophil Ct (ANC) 8.35 (1.4-6.9); BASOPHIL % 0.1 % (0.0-0.4); Basophil (Absolute #) 0.01 (0-0.4); Eosinophil % 0.2 % (0.00-5.0); Eosinophil (Absolute #) 0.02 (0-0.5); Hematocrit 37.4 % (35-47); Hemoglobin 12.1 gm/dl (12.0-16.0); Lymphocyte (Absolute #) 0.64 (1.0-4.6); Lymphocytes % 6.4 % (24.0-44.0); Mean Corpuscular Hemoglobin 29.4 pg (26-32); Mean Corpuscular Hgb Concent. 32.4 g/dl (32-36); Mean Platelet Volume 12.2 fl (7.5-11.0); Monocyte (Absolute #) 1.01 (0.0-1.3); Monocytes % 10.1 % (0.0-12.0); Neutrophil % 83.2 % (36.0-66.0); Platelet Count 82 K/mm3 (150-450); Red Blood Count 4.11 M/mm3 (4.1-5.4); Red Cell Distribution Width 14.6 % (11.5-14.0)
[2019-10-15 02:46] LABS: ALBUMIN 4.1 g/dL (3.5-5.0); ALKALINE PHOSPHATASE 144 U/L (38-126); ANION GAP 14.6 MEQ/L (5-15); BLOOD UREA NITROGEN 12 mg/dL (7-17); CHLORIDE 99 mmol/L (98-107); Carbon Dioxide 24 mmol/L (22-30); Creatinine 1 0.61 mg/dL (0.52-1.04); Glucose 182 mg/dL (74-106); MAGNESIUM 1.6 mg/dL (1.6-2.3); NT PRO BNP 214 pg/mL (0-1800); Potassium 4.2 mmol/L (3.5-5.1); SGOT/AST 19 U/L (14-36); SGPT/ALT 16 U/L (0-35); SODIUM 134 mmol/L (137-145); Total Protein 8.1 g/dL (6.3-8.2)
[2019-10-15] MEDS ORDERED: LEVOFLOXACIN 750MG/150ML D5W 750 MG/150 ML BAG IV STA (02:56)
[2019-10-15 02:59] LABS: INFLUENZA A NEGATIVE (NEGATIVE); INFLUENZA B NEGATIVE (NEGATIVE); RESPIRATORY SYNCTIAL VIRUS POSITIVE (Negative)
[2019-10-15] MEDS ORDERED: Sodium Chloride 0.9% 1000 ML 1,000 ML IV SCH (03:29)
[2019-10-15] MEDS ORDERED: LEVOFLOXACIN 750MG/150ML D5W 750 MG/150 ML BAG IV ONE (03:39)
[2019-10-15 05:06] LABS: Appearance CLEAR (CLEAR); Bilirubin NEGATIVE (NEGATIVE); Blood NEGATIVE Ery/ul (0-5); Glucose NEGATIVE (NEGATIVE); Ketones TRACE (NEGATIVE); Leukocyte Esterase NEGATIVE (NEGATIVE); Mucus SLIGHT /HPF (NEGATIVE); Nitrite NEGATIVE (NEGATIVE); Protein,Urine Dip NEGATIVE (Negative); RBC 0-2 /HPF (0-2); Specific Gravity 1.012 (1.005-1.025); Urobilinogen NEGATIVE mg/dL (0-1)
[2019-10-15 05:08] LABS: Bacteria NONE SEEN /HPF (NEGATIVE)
[2019-10-15] MEDS: DUONEB 0.5-3 MG/3 ml Neb IH SCH ×6 (06:37→23:23)
[2019-10-15] MEDS ORDERED: ADVAIR 250-50 DISKUS 14 DOSE IH SCH (07:00)
--- NOTE | 2019-10-15 09:06 | XRAY ---
Indication: Pneumonia. Comparison: None Portable chest demonstrates small bibasilar pleural effusions and right infrahilar infiltrate/atelectasis all new with respect to right rib exam September 15, 2019. Remaining heart and lungs unremarkable with resolved right pneumothorax. Multiple right rib fractures with new multiple fixation plates/screws.
[2019-10-15] MEDS: Sodium Chloride 0.9% 1000 ML 1,000 ML IV SCH (10:57)
[2019-10-15] MEDS: ADVAIR 250-50 DISKUS 14 DOSE IH SCH ×2 (11:29→18:30)
[2019-10-15] MEDS ORDERED: OXYCODONE HCL 5 MG PO PRN (12:38)
[2019-10-15] MEDS ORDERED: TYLENOL EXTRA STRENGTH 500 MG PO PRN (12:38)
[2019-10-15] MEDS ORDERED: Oxy-IR 5 MG PO PRN (12:43)
[2019-10-15] MEDS ORDERED: MOTRIN 600 MG PO PRN (13:04)
[2019-10-15] MEDS: Zithromax 500 MG/ 250 ML NaCl Premix 500 MG/250 ML IVPB IV SCH (13:49)
[2019-10-15 13:51] LABS: A-aADO2 62; ABG HEMOGLOBIN 11.5; ABG POTASSIUM 4.1 (3.5-5.1); ABG SITE LEFT RADIAL; ALLEN TEST OK? yes; ARTERIAL BLD GAS O2 SATURATION 98.2 % (95-100); ARTERIAL BLOOD GAS BASE EXCESS 0.5 (-2.0-2.0); ARTERIAL BLOOD GAS FIO2 28 %; ARTERIAL BLOOD GAS PCO2 41 mmHg (35-45); ARTERIAL BLOOD GAS PO2 86 mmHg (75-100); CARBOXYHEMOGLOBIN 1.7 % THgb (0.0-6.9); HCO3- 25.4 (22-28); HGB O2 SAT 96.1 g/dF (94-100); Methhemoglobin 0.4 % (1.4-1.5); paO2 pAO1 0.58
--- NOTE | 2019-10-15 14:30 | XRAY ---
Indication: Confusion and drowsiness. Multiple contiguous axial images obtained through the head without contrast. Comparison: None Age-appropriate global atrophy. No acute intracranial hemorrhage, abnormal extra-axial fluid collection, or mass effect. Fourth ventricle is midline without hydrocephalus. Zambrano-white matter differentiation preserved. Bony calvarium intact. There is mild fluid leveling in both maxillary sinuses and moderate mucosal thickening of both ethmoid sinuses and lesser degree left sphenoid sinus. Mastoid air cells are clear. Impression: Paranasal sinus disease. Remaining CT head without contrast exam is negative.
[2019-10-15] MEDS ORDERED: GUAIFENESIN 400 MG PO SCH (15:00)
--- NOTE | 2019-10-15 16:37 | XRAY ---
Indication: Cough, short of breath, tiredness, and elevated d-dimer. Multiple contiguous axial images obtained through the chest using 80 cc of Isovue-370 contrast and PE protocol. Comparison: CT chest without contrast September 15, 2019. There is suboptimal opacification of the pulmonary arteries limiting evaluation of the more distal lobar and segmental branches. No central pulmonary embolus. Heart remains borderline enlarged. Aorta is normal in course and caliber without aneurysm/dissection. No pathologic mediastinal/hilar lymphadenopathy. Lungs demonstrate worsening small left effusion with left lower lobe compressive atelectasis. Right lung demonstrates worsening peripheral pleural-parenchymal thickening/scarring presumed related to healing right 4-8 rib fractures with new fixation hardware. Again tiny right base effusion/hemothorax. No pneumothorax. Previous right chest wall emphysema has cleared. Impression: 1. Pulmonary embolus evaluation limited due to suboptimal opacification. No central pulmonary embolus. 2. Healing right 4-8 rib fractures with new fixation hardware. Probable reactive adjacent pleural-parenchymal thickening and scarring with stable tiny right base effusion/hemothorax. 2. Worsening small left effusion and left lower lobe atelectasis.
[2019-10-15] MEDS ORDERED: Robitussin AC Syrup Unit Dose Cup PO PRN (18:11)
[2019-10-15] MEDS ORDERED: Colace 100 MG PO PRN (18:13)
[2019-10-15] MEDS ORDERED: Zofran 4 MG/2 ML VIAL IV PRN (18:14)
[2019-10-15] MEDS ORDERED: Tessalon Perles 100 MG PO PRN (18:14)
[2019-10-15] MEDS: ceLEXa 20 MG PO SCH (21:37)
[2019-10-15] MEDS: LEVOFLOXACIN 750MG/150ML D5W 750 MG/150 ML BAG IV SCH (21:37)
[2019-10-15] MEDS: Wellbutrin XL 150 MG PO SCH (21:37)
[2019-10-15] MEDS ORDERED: Mucinex 600MG ER Tabs PO SCH ×2 (22:00)
[2019-10-16] MEDS: Sodium Chloride 0.9% 1000 ML 1,000 ML IV SCH ×3 (00:02→21:09)
[2019-10-16] MEDS: DUONEB 0.5-3 MG/3 ml Neb IH SCH ×6 (03:55→23:16)
[2019-10-16 04:46] LABS: Hemoglobin 9.9 gm/dl (12.0-16.0); Mean Cell Volume 93.1 fl (78-100); Mean Corpuscular Hemoglobin 29.7 pg (26-32); Mean Corpuscular Hgb Concent. 31.9 g/dl (32-36); Mean Platelet Volume 11.7 fl (7.5-11.0); Platelet Count 103 K/mm3 (150-450); Red Blood Count 3.33 M/mm3 (4.1-5.4); Red Cell Distribution Width 14.8 % (11.5-14.0); White Blood Count 9.3 K/mm3 (4.0-10.5)
[2019-10-16 05:21] LABS: ALBUMIN 3.1 g/dL (3.5-5.0); ALKALINE PHOSPHATASE 94 U/L (38-126); ANION GAP 9.2 MEQ/L (5-15); BLOOD UREA NITROGEN 17 mg/dL (7-17); CHLORIDE 107 mmol/L (98-107); Calcium 8.4 mg/dL (8.4-10.2); Carbon Dioxide 25 mmol/L (22-30); Creatinine 1 0.63 mg/dL (0.52-1.04); Glucose 92 mg/dL (74-106); Potassium 3.7 mmol/L (3.5-5.1); SGOT/AST 17 U/L (14-36); SGPT/ALT 12 U/L (0-35); SODIUM 138 mmol/L (137-145); Total Protein 6.6 g/dL (6.3-8.2)
[2019-10-16 05:31] LABS: NT PRO BNP 102 pg/mL (0-1800)
[2019-10-16] MEDS: solu-MEDROL 125 MG IV SCH ×4 (06:15→23:51)
[2019-10-16 07:43] LABS: BAND 8 % (0.0-2.0); Lymphocytes 11 % (24-44); Monocyte 6 % (0.0-12.0); Neutrophils 75 % (36.0-66.0); Total Cells Counted 100
[2019-10-16 07:56] LABS: Platelet Estimate DECREASED (NORMAL)
--- NOTE | 2019-10-16 08:03 | PCM.NOTE ---
Date and Time: 10/16/19802 Subjective Assessment: 74 yr old female seen and examined this am. Patient reports she is still having cough and SOB. She reports that she has been doing incentive spirometry and flutter therapy as directed. Patient reports that she still has R sided anterior chest wall pain where her rib fx are located. Patient also reports R shoulder pain as well. Patient has good appetite. She worked with PT on her shoulder. Patient reports constipation. Patient reports lower leg edema - Review of Systems Constitutional: No Fever, No Weakness Eyes: No Symptoms Ears, Nose, & Throat: No Symptoms Respiratory: Cough, Short Of Breath, Wheezing Cardiac: Edema, No Chest Pain Abdominal/Gastrointestinal: Constipation, No Abdominal Pain, No Nausea, No Vomiting, No Diarrhea Genitourinary Symptoms: No Symptoms Musculoskeletal: Other (Rib pain from fall with fx and fixation) Skin: Dryness, No Rash Neurological: No Dizziness, No Headache Psychological: Anxiety Objective Exam General Appearance: mild distress Neurologic Exam: alert, oriented x 3, cooperative, normal mood/affect Skin Exam: normal color, warm, dry Eye Exam: eyes nml inspection Ears, Nose, Throat Exam: moist mucous membranes Neck Exam: normal inspection Respiratory Exam: diminished breath sounds, crackles/rales, wheezing, No normal breath sounds, No lungs clear Cardiovascular Exam: regular rate/rhythm, normal heart sounds, No murmur, No friction rub, No gallop Gastrointestinal/Abdomen Exam: soft, normal bowel sounds, No tenderness, No distention Extremity Exam: pedal edema, other (Decreased ROM R shoulder) Back Exam: normal inspection OBJECTIVE DATA Vital Signs: Vital Signs - 24 hr Temp Pulse Resp BP Pulse Ox 10/16/19 07:29 98.4 F 109 H 20 138/65 94 L 10/16/19 04:00 98.6 F 108 H 16 125/58 94 L 10/16/19 03:55 108 H 24 94 L 10/16/19 00:00 98 F 135 H 28 H 125/60 96 10/15/19 23:23 135 H 28 H 96 10/15/19 20:00 98.4 F 116 H 24 125/59 94 L 10/15/19 18:30 106 H 23 92 L 10/15/19 16:07 97.8 F 108 H 20 121/57 95 10/15/19 14:37 89 18 97 10/15/19 12:00 98.5 F 99 H 18 129/61 94 L 10/15/19 11:43 91 H 18 94 L Pain Assessment - Last Documented Pain Intensity 0 Pain Scale Used 0-10 Pain Scale Intake and Output: Intake & Output 10/13/19 10/14/19 10/15/19 10/16/19 11:59 11:59 11:59 11:59 Intake Total 480 4027 Output Total 1800 Balance 480 2227 Weight 85.6 kg 87.2 kg Lab Results: Lab Results-Last 24 Hours 10/15/19 10/15/19 10/15/19 Range/Units 08:10 11:30 12:42 WBC (4.0-10.5) K/mm3 RBC (4.1-5.4) M/mm3 Hgb (12.0-16.0) gm/dl Hct (35-47) % MCV (78-100) fl MCH (26-32) pg MCHC (32-36) g/dl RDW (11.5-14.0) % Plt Count (150-450) K/mm3 MPV (7.5-11.0) fl Segmented Neutrophils (36.0-66.0) % Band Neutrophils (0.0-2.0) % Lymphocytes (Manual) (24-44) % Monocytes (Manual) (0.0-12.0) % Platelet Estimate (NORMAL) RBC Morphology D-Dimer (215-500) ng/mL Puncture Site LEFT RADIAL pCO2 41 (35-45) mmHg pO2 86 (75-100) mmHg Base Excess 0.5 (-2.0-2.0) O2 Saturation 96.1 (94-100) g/dF ABG pH 7.40 (7.35-7.45) ABG HCO3 25.4 (22-28) ABG O2 Sat (Measured) 98.2 (95-100) % Rickey Test yes A-a Gradient 62 a/A Ratio 0.58 Hemoglobin 11.5 Carboxyhemoglobin 1.7 (0.0-6.9) % THgb Methemoglobin 0.4 L (1.4-1.5) % Potassium 4.1 (3.5-5.1) Temperature 37.0 C POC O2 Flow Rate 28 % Sodium (137-145) mmol/L Chloride (98-107) mmol/L Carbon Dioxide (22-30) mmol/L Anion Gap (5-15) MEQ/L BUN (7-17) mg/dL Creatinine (0.52-1.04) mg/dL Estimated GFR ML/MIN Glucose (74-106) mg/dL Calcium (8.4-10.2) mg/dL Total Bilirubin (0.2-1.3) mg/dL AST (14-36) U/L ALT (0-35) U/L Alkaline Phosphatase (38-126) U/L Troponin I < 0.012 < 0.012 (0.000-0.034) ng/mL NT-Pro-B Natriuret Pep (0-1800) pg/mL Serum Total Protein (6.3-8.2) g/dL Albumin (3.5-5.0) g/dL 10/15/19 10/15/19 10/16/19 Range/Units 13:57 13:57 04:20 WBC 9.3 (4.0-10.5) K/mm3 RBC 3.33 L (4.1-5.4) M/mm3 Hgb 9.9 L (12.0-16.0) gm/dl Hct 31.0 L (35-47) % MCV 93.1 (78-100) fl MCH 29.7 (26-32) pg MCHC 31.9 L (32-36) g/dl RDW 14.8 H (11.5-14.0) % Plt Count 103 L (150-450) K/mm3 MPV 11.7 H (7.5-11.0) fl Segmented Neutrophils 75 H (36.0-66.0) % Band Neutrophils 8 H (0.0-2.0) % Lymphocytes (Manual) 11 L (24-44) % Monocytes (Manual) 6 (0.0-12.0) % Platelet Estimate DECREASED (NORMAL) RBC Morphology NORMAL D-Dimer 2444 H* (215-500) ng/mL Puncture Site pCO2 (35-45) mmHg pO2 (75-100) mmHg Base Excess (-2.0-2.0) O2 Saturation (94-100) g/dF ABG pH (7.35-7.45) ABG HCO3 (22-28) ABG O2 Sat (Measured) (95-100) % Rickey Test A-a Gradient a/A Ratio Hemoglobin Carboxyhemoglobin (0.0-6.9) % THgb Methemoglobin (1.4-1.5) % Potassium (3.5-5.1) Temperature C POC O2 Flow Rate % Sodium (137-145) mmol/L Chloride (98-107) mmol/L Carbon Dioxide (22-30) mmol/L Anion Gap (5-15) MEQ/L BUN (7-17) mg/dL Creatinine (0.52-1.04) mg/dL Estimated GFR ML/MIN Glucose (74-106) mg/dL Calcium (8.4-10.2) mg/dL Total Bilirubin (0.2-1.3) mg/dL AST (14-36) U/L ALT (0-35) U/L Alkaline Phosphatase (38-126) U/L Troponin I < 0.012 (0.000-0.034) ng/mL NT-Pro-B Natriuret Pep (0-1800) pg/mL Serum Total Protein (6.3-8.2) g/dL Albumin (3.5-5.0) g/dL 10/16/19 Range/Units 04:20 WBC (4.0-10.5) K/mm3 RBC (4.1-5.4) M/mm3 Hgb (12.0-16.0) gm/dl Hct (35-47) % MCV (78-100) fl MCH (26-32) pg MCHC (32-36) g/dl RDW (11.5-14.0) % Plt Count (150-450) K/mm3 MPV (7.5-11.0) fl Segmented Neutrophils (36.0-66.0) % Band Neutrophils (0.0-2.0) % Lymphocytes (Manual) (24-44) % Monocytes (Manual) (0.0-12.0) % Platelet Estimate (NORMAL) RBC Morphology D-Dimer (215-500) ng/mL Puncture Site pCO2 (35-45) mmHg pO2 (75-100) mmHg Base Excess (-2.0-2.0) O2 Saturation (94-100) g/dF ABG pH (7.35-7.45) ABG HCO3 (22-28) ABG O2 Sat (Measured) (95-100) % Rickey Test A-a Gradient a/A Ratio Hemoglobin Carboxyhemoglobin (0.0-6.9) % THgb Methemoglobin (1.4-1.5) % Potassium 3.7 (3.5-5.1) Temperature C POC O2 Flow Rate % Sodium 138 (137-145) mmol/L Chloride 107 (98-107) mmol/L Carbon Dioxide 25 (22-30) mmol/L Anion Gap 9.2 (5-15) MEQ/L BUN 17 (7-17) mg/dL Creatinine 0.63 (0.52-1.04) mg/dL Estimated GFR > 60.0 ML/MIN Glucose 92 (74-106) mg/dL Calcium 8.4 (8.4-10.2) mg/dL Total Bilirubin 0.30 (0.2-1.3) mg/dL AST 17 (14-36) U/L ALT 12 (0-35) U/L Alkaline Phosphatase 94 (38-126) U/L Troponin I (0.000-0.034) ng/mL NT-Pro-B Natriuret Pep 102 (0-1800) pg/mL Serum Total Protein 6.6 (6.3-8.2) g/dL Albumin 3.1 L (3.5-5.0) g/dL Radiology Exams: Radiology Procedures Category Date Time Status CHEST 1 VIEW (PORTABLE) Stat Exams 10/15/19 01:58 Completed CHEST WITH CONTRAST [CT] Routine Exams 10/15/19 14:32 Completed HEAD WITHOUT CONTRAST [CT] Stat Exams 10/15/19 12:41 Completed Multi-Disciplinary Progress Notes: Multi-Disciplinary Progress Notes 10/15/19 13:23 Pharmacy Note by Alex Owens Please be aware of possible drug interaction with Celexa and Levaquin and Zithromax. May prolong QT interval. Initialized on 10/15/19 13:23 - END OF NOTE Assessment/Plan (1) Pneumonia Status: Acute Qualifiers: Pneumonia type: due to unspecified organism Laterality: right Lung location: unspecified part of lung Qualified Code(s): J18.9 - Pneumonia, unspecified organism Assessment & Plan: Pneumonia complicated by pleural effusions and rib fx s/p fixation. Patient is on antibiotic tx. She has been afebriled following admission to hospital Code(s): J18.9 - PNEUMONIA, UNSPECIFIED ORGANISM (2) Dyspnea Status: Acute Assessment & Plan: Patient is requiring oxygen which she does not require at baseline. Will continue to have patient work with resp therapy. She continues with her flutter therapy and incentive spirometry Code(s): R06.00 - DYSPNEA, UNSPECIFIED (3) Asthma Status: Acute Assessment & Plan: Patient reports hx of asthma. She is getting steroids and breathing tx scheduled Code(s): J45.909 - UNSPECIFIED ASTHMA, UNCOMPLICATED (4) Constipation Status: Acute Assessment & Plan: Patient will start miralax and colace for constipation as needed Code(s): K59.00 - CONSTIPATION, UNSPECIFIED (5) Obstructive sleep apnea Status: Acute Assessment & Plan: Patient is using cpap at night time. Code(s): G47.33 - OBSTRUCTIVE SLEEP APNEA (ADULT) (PEDIATRIC) (6) Ribs, multiple fractures Status: Acute Qualifiers: Encounter type: subsequent encounter Fracture type: closed Laterality: right Fracture healing: with routine healing Qualified Code(s): S22.41XD - Multiple fractures of ribs, right side, subsequent encounter for fracture with routine healing Assessment & Plan: Patient has multiple rib fx from recent traumatic fall. She had repair done and has since developed pleural effusions that are not resolving Code(s): S22.49XA - MULTIPLE FRACTURES OF RIBS, UNSP SIDE, INIT FOR CLOS FX (7) Shoulder pain, acute Status: Acute Assessment & Plan: Plan for shoulder xray. Patient's R shoulder as been painful since her traumatic fall. She did not notice it immediately but has since had difficulty with ROM Code(s): M25.519 - PAIN IN UNSPECIFIED SHOULDER
--- NOTE | 2019-10-16 08:03 | PCM.HP ---
History of Present Illness - Chief Complaint Chief Complaint: pneumonia Date: 10/15/19 History of Present Illness: is a 74 year old female seen this am following ER admission for fever asthma exacerbation RSV and pneumonia. Patient reports that she had a recent fall and sustained multiple rib fractures and had surgery on Sep 13 to repair the fractures. Patient reports she was discharged to [facility] for rehab and was then discharged on Sat to her daughter's home. Patient had been started on antibiotic for cough prior to admission but was not improving. Patient started having increased shortness of breath and dyspnea with minimal exertion so was brought in by EMS to ER. Patient reports that since admission she has been doing slightly better. She has been using the incentive spirometry and chest flutter therapy. She feels the flutter therapy is helping and she has noticed improved breathing. She gets short of breath when getting up to go to the bathroom. She reports productive cough. She has a reported hx of JEANNETTE and wears her CPAP nightly as directed. She is not on oxygen at home. She has a hx of asthma and used Breo and rescue inhaler. Patient reports she still has right sided chest wall pain where her rib fractures are and R shoulder pain that developed shortly after the fall. - Review of Systems Constitutional: Fatigue, No Fever, No Chills Eyes: No Symptoms Ears, Nose, & Throat: Nose Congestion, No Sinus Drainage Respiratory: Cough, Short Of Breath, Wheezing Cardiac: Edema, No Chest Pain, No Palpitations Abdominal/Gastrointestinal: Nausea, Constipation, No Abdominal Pain, No Vomiting , No Diarrhea Genitourinary Symptoms: Incontinence (coughing) Musculoskeletal: Arthralgias, Other (R sided healing rib fx) Skin: No Rash Neurological: No Headache Psychological: Depression, No Alcohol Abuse, No Drug Abuse, No Anxiety Endocrine: No Symptoms Hematologic/Lymphatic: No Symptoms Immunological/Allergic: No Symptoms Medications & Allergies Home Medications: Home Medication List Bupropion HCl Xl 150 mg [Wellbutrin XL 150 MG] 450 mg PO HS 08/14/19 [ History Confirmed 10/15/19] Citalopram Hydrobromide 20 mg* [ceLEXa 20 MG] 20 mg PO HS 08/14/19 [History Confirmed 10/15/19] Acetaminophen 500 mg [Tylenol Extra Strength 500 mg] 1,000 mg PO Q6HPRN PRN 10/15/19 [History Confirmed 10/15/19] Bisacodyl 10 mg [Dulcolax 10 MG SUPP] 10 mg RC DAILY PRN PRN 10/15/19 [ History Confirmed 10/15/19] Docusate Sodium [Colace] 100 mg PO DAILY 10/15/19 [History Confirmed 10/15/19] Fluticasone/Vilanterol [Breo Ellipta 200-25 Mcg INH] 1 puff IH HS 10/15/19 [ History Confirmed 10/15/19] Guaifenesin 400 mg PO TID 10/15/19 [History Confirmed 10/15/19] Ipratropium/Albuterol Sulfate [Iprat-Albut 0.5-3(2.5) mg/3 ml] 3 ml IH Q6H 10/15 [History Confirmed 10/15/19] Oxycodone HCl [Oxyir] 5 mg PO Q4HPRN PRN 10/15/19 [History Confirmed 10/15/19] Allergies/Adverse Reactions: Allergies Allergy/AdvReac Type Severity Reaction Status Date / Time No Known Drug Allergies Allergy Verified 10/15/19 04:43 - Past Medical History Past Medical History: Yes Neurological History: No Pertinent History ENT History: No Pertinent History Cardiac History: No Pertinent History Respiratory History: Asthma Endocrine Medical History: No Pertinent History Musculoskelatal History: Arthritis GI Medical History: No Pertinent History History: No Pertinent History Pyscho-Social History: Anxiety, Depression Reproductive Disorders: No Pertinent History - Female History Are you now?: No - Past Surgical History Past Surgical History: Yes Neuro Surgical History: No Pertinent History Cardiac History: No Pertinent History Respiratory Surgery: No Pertinent History GI Surgical History: Cholecystectomy Genitourinary Surgical Hx: No Pertinent History Musculskeletal Surgical Hx: Orthopedic Surgery Female Surgical History: No Pertinent History Other Surgical History: Spleen repaired, knee replacements, pt states fluid drained from lungs - Social History Smoking Status: Never smoker Exposure to second hand smoke: No Alcohol: None Drug Use: none - Physical Exam Vital Signs: Vital Signs - 24 hr Temp Pulse Resp BP Pulse Ox 10/16/19 07:29 98.4 F 109 H 20 138/65 94 L 10/16/19 04:00 98.6 F 108 H 16 125/58 94 L 10/16/19 03:55 108 H 24 94 L 10/16/19 00:00 98 F 135 H 28 H 125/60 96 10/15/19 23:23 135 H 28 H 96 10/15/19 20:00 98.4 F 116 H 24 125/59 94 L 10/15/19 18:30 106 H 23 92 L 10/15/19 16:07 97.8 F 108 H 20 121/57 95 10/15/19 14:37 89 18 97 10/15/19 12:00 98.5 F 99 H 18 129/61 94 L 10/15/19 11:43 91 H 18 94 L General Appearance: mild distress Neurologic Exam: alert, oriented x 3, cooperative, money counter II-XII nml as tested, normal mood/affect, No confusion, No agitation, No facial droop Eye Exam: No scleral icterus Ears, Nose, Throat Exam: moist mucous membranes Neck Exam: normal inspection Respiratory Exam: wheezing, other (coarse breath sounds) Cardiovascular Exam: regular rate/rhythm, normal heart sounds, No murmur, No friction rub, No gallop Gastrointestinal/Abdomen Exam: soft, normal bowel sounds, No tenderness, No distention Pelvic Exam: not done Rectal Exam: not done Extremity Exam: normal inspection, other (limited ROM R shoulder) Skin Exam: normal color, warm, dry, No rash Results - Labs Lab/Micro Results: Lab Results-Last 24 Hours 10/15/19 10/15/19 10/15/19 Range/Units 08:10 11:30 12:42 WBC (4.0-10.5) K/mm3 RBC (4.1-5.4) M/mm3 Hgb (12.0-16.0) gm/dl Hct (35-47) % MCV (78-100) fl MCH (26-32) pg MCHC (32-36) g/dl RDW (11.5-14.0) % Plt Count (150-450) K/mm3 MPV (7.5-11.0) fl Segmented Neutrophils (36.0-66.0) % Band Neutrophils (0.0-2.0) % Lymphocytes (Manual) (24-44) % Monocytes (Manual) (0.0-12.0) % Platelet Estimate (NORMAL) RBC Morphology D-Dimer (215-500) ng/mL Puncture Site LEFT RADIAL pCO2 41 (35-45) mmHg pO2 86 (75-100) mmHg Base Excess 0.5 (-2.0-2.0) O2 Saturation 96.1 (94-100) g/dF ABG pH 7.40 (7.35-7.45) ABG HCO3 25.4 (22-28) ABG O2 Sat (Measured) 98.2 (95-100) % Rickey Test yes A-a Gradient 62 a/A Ratio 0.58 Hemoglobin 11.5 Carboxyhemoglobin 1.7 (0.0-6.9) % THgb Methemoglobin 0.4 L (1.4-1.5) % Potassium 4.1 (3.5-5.1) Temperature 37.0 C POC O2 Flow Rate 28 % Sodium (137-145) mmol/L Chloride (98-107) mmol/L Carbon Dioxide (22-30) mmol/L Anion Gap (5-15) MEQ/L BUN (7-17) mg/dL Creatinine (0.52-1.04) mg/dL Estimated GFR ML/MIN Glucose (74-106) mg/dL Calcium (8.4-10.2) mg/dL Total Bilirubin (0.2-1.3) mg/dL AST (14-36) U/L ALT (0-35) U/L Alkaline Phosphatase (38-126) U/L Troponin I < 0.012 < 0.012 (0.000-0.034) ng/mL NT-Pro-B Natriuret Pep (0-1800) pg/mL Serum Total Protein (6.3-8.2) g/dL Albumin (3.5-5.0) g/dL 10/15/19 10/15/19 10/16/19 Range/Units 13:57 13:57 04:20 WBC 9.3 (4.0-10.5) K/mm3 RBC 3.33 L (4.1-5.4) M/mm3 Hgb 9.9 L (12.0-16.0) gm/dl Hct 31.0 L (35-47) % MCV 93.1 (78-100) fl MCH 29.7 (26-32) pg MCHC 31.9 L (32-36) g/dl RDW 14.8 H (11.5-14.0) % Plt Count 103 L (150-450) K/mm3 MPV 11.7 H (7.5-11.0) fl Segmented Neutrophils 75 H (36.0-66.0) % Band Neutrophils 8 H (0.0-2.0) % Lymphocytes (Manual) 11 L (24-44) % Monocytes (Manual) 6 (0.0-12.0) % Platelet Estimate DECREASED (NORMAL) RBC Morphology NORMAL D-Dimer 2444 H* (215-500) ng/mL Puncture Site pCO2 (35-45) mmHg pO2 (75-100) mmHg Base Excess (-2.0-2.0) O2 Saturation (94-100) g/dF ABG pH (7.35-7.45) ABG HCO3 (22-28) ABG O2 Sat (Measured) (95-100) % Rickey Test A-a Gradient a/A Ratio Hemoglobin Carboxyhemoglobin (0.0-6.9) % THgb Methemoglobin (1.4-1.5) % Potassium (3.5-5.1) Temperature C POC O2 Flow Rate % Sodium (137-145) mmol/L Chloride (98-107) mmol/L Carbon Dioxide (22-30) mmol/L Anion Gap (5-15) MEQ/L BUN (7-17) mg/dL Creatinine (0.52-1.04) mg/dL Estimated GFR ML/MIN Glucose (74-106) mg/dL Calcium (8.4-10.2) mg/dL Total Bilirubin (0.2-1.3) mg/dL AST (14-36) U/L ALT (0-35) U/L Alkaline Phosphatase (38-126) U/L Troponin I < 0.012 (0.000-0.034) ng/mL NT-Pro-B Natriuret Pep (0-1800) pg/mL Serum Total Protein (6.3-8.2) g/dL Albumin (3.5-5.0) g/dL 10/16/19 Range/Units 04:20 WBC (4.0-10.5) K/mm3 RBC (4.1-5.4) M/mm3 Hgb (12.0-16.0) gm/dl Hct (35-47) % MCV (78-100) fl MCH (26-32) pg MCHC (32-36) g/dl RDW (11.5-14.0) % Plt Count (150-450) K/mm3 MPV (7.5-11.0) fl Segmented Neutrophils (36.0-66.0) % Band Neutrophils (0.0-2.0) % Lymphocytes (Manual) (24-44) % Monocytes (Manual) (0.0-12.0) % Platelet Estimate (NORMAL) RBC Morphology D-Dimer (215-500) ng/mL Puncture Site pCO2 (35-45) mmHg pO2 (75-100) mmHg Base Excess (-2.0-2.0) O2 Saturation (94-100) g/dF ABG pH (7.35-7.45) ABG HCO3 (22-28) ABG O2 Sat (Measured) (95-100) % Rickey Test A-a Gradient a/A Ratio Hemoglobin Carboxyhemoglobin (0.0-6.9) % THgb Methemoglobin (1.4-1.5) % Potassium 3.7 (3.5-5.1) Temperature C POC O2 Flow Rate % Sodium 138 (137-145) mmol/L Chloride 107 (98-107) mmol/L Carbon Dioxide 25 (22-30) mmol/L Anion Gap 9.2 (5-15) MEQ/L BUN 17 (7-17) mg/dL Creatinine 0.63 (0.52-1.04) mg/dL Estimated GFR > 60.0 ML/MIN Glucose 92 (74-106) mg/dL Calcium 8.4 (8.4-10.2) mg/dL Total Bilirubin 0.30 (0.2-1.3) mg/dL AST 17 (14-36) U/L ALT 12 (0-35) U/L Alkaline Phosphatase 94 (38-126) U/L Troponin I (0.000-0.034) ng/mL NT-Pro-B Natriuret Pep 102 (0-1800) pg/mL Serum Total Protein 6.6 (6.3-8.2) g/dL Albumin 3.1 L (3.5-5.0) g/dL - Radiology Impressions Radiology Exams & Impressions: Radiology Procedures Category Date Time Status CHEST 1 VIEW (PORTABLE) Stat Exams 10/15/19 01:58 Completed CHEST WITH CONTRAST [CT] Routine Exams 10/15/19 14:32 Completed HEAD WITHOUT CONTRAST [CT] Stat Exams 10/15/19 12:41 Completed - Other Procedures and Tests Respiratory Therapy 10/15/19 18:18 Incentive Spirometry UD 10/15/19 21:41 BiPap/CPAP ROUTINE Assessment/Plan (1) Pneumonia Current Visit: Yes Status: Acute Qualifiers: Pneumonia type: due to unspecified organism Laterality: right Lung location: unspecified part of lung Qualified Code(s): J18.9 - Pneumonia, unspecified organism Assessment & Plan: Patient had acute changes noted on chest xray and appears to have developed a pneumonia with pleural effusion present. Patient was started on levaquin and will continue on this medication. Code(s): J18.9 - PNEUMONIA, UNSPECIFIED ORGANISM (2) Ribs, multiple fractures Current Visit: Yes Status: Acute Qualifiers: Encounter type: subsequent encounter Fracture type: closed Laterality: right Fracture healing: with routine healing Qualified Code(s): S22.41XD - Multiple fractures of ribs, right side, subsequent encounter for fracture with routine healing Assessment & Plan: Patient has had surgical repair for R sided rib fractures. Imaging has not demonstrated any shifting or hardware failure. Code(s): S22.49XA - MULTIPLE FRACTURES OF RIBS, UNSP SIDE, INIT FOR CLOS FX (3) Constipation Current Visit: Yes Status: Acute Assessment & Plan: Chronic in nature will have PRN stool softner available Code(s): K59.00 - CONSTIPATION, UNSPECIFIED (4) Shoulder pain, acute Current Visit: Yes Status: Acute Assessment & Plan: R shoulder pain that has developed following patient's recent fall. Will get dedicated shoulder films if shoulder pain persists. PT was ordered to help with ROM. Code(s): M25.519 - PAIN IN UNSPECIFIED SHOULDER (5) Dyspnea Current Visit: Yes Status: Acute Assessment & Plan: Multifactorial in nature. Patient has asthma, RSV, healing rib fractures and pneumonia with pleural effusion. Patient is on antibiotics, duonebs and steroids. Patient is receiving pulm toilet. She is using CPAP at night. Will get BNP as well to determine underlying CHF. Patient will work with PT for conditioning as well. Code(s): R06.00 - DYSPNEA, UNSPECIFIED (6) Asthma Current Visit: Yes Status: Acute Assessment & Plan: Patient is on nebulizer tx and steroids. She may benefit from Theophylline if she does not shows signs of improvement. Code(s): J45.909 - UNSPECIFIED ASTHMA, UNCOMPLICATED
[2019-10-16] MEDS: ADVAIR 250-50 DISKUS 14 DOSE IH SCH ×2 (08:10→19:35)
[2019-10-16] MEDS: Mucinex 600MG ER Tabs PO SCH (09:47)
[2019-10-16] MEDS: Zithromax 500 MG/ 250 ML NaCl Premix 500 MG/250 ML IVPB IV SCH (09:47)
[2019-10-16] MEDS: Colace 100 MG PO SCH (09:47)
[2019-10-16] MEDS: ceLEXa 20 MG PO SCH (21:07)
[2019-10-16] MEDS: Wellbutrin XL 150 MG PO SCH (21:07)
[2019-10-16] MEDS: LEVOFLOXACIN 750MG/150ML D5W 750 MG/150 ML BAG IV SCH (21:07)
[2019-10-16] MEDS: Dulcolax 10 MG SUPP RC PRN ×2 (21:07→23:52)
[2019-10-17] MEDS: DUONEB 0.5-3 MG/3 ml Neb IH SCH ×6 (03:24→22:51)
[2019-10-17] MEDS: solu-MEDROL 125 MG IV SCH ×4 (06:29→23:28)
[2019-10-17] MEDS: ADVAIR 250-50 DISKUS 14 DOSE IH SCH ×2 (07:05→19:32)
[2019-10-17] MEDS: Sodium Chloride 0.9% 1000 ML 1,000 ML IV SCH (08:28)
--- NOTE | 2019-10-17 08:38 | PCM.NOTE ---
Date and Time: 10/17/19835 Subjective Assessment: 74 yr old female seen and examined this am. Patient is doing well. She still has occasional SOB on exertion. No reported hx of CHF. Patient denies swelling in legs. She has continued to cough but she reports it is less freq. Patient is eating well. She got up with PT yesterday. Still reports some R shoulder pain. No reported chest pain. Patient reports constipation and would like milk of mag instead of a suppository. - Review of Systems Constitutional: No Fever, No Chills Ears, Nose, & Throat: No No Symptoms Respiratory: Cough, Short Of Breath Cardiac: No Chest Pain, No Edema, No Palpitations Abdominal/Gastrointestinal: Constipation, No Abdominal Pain, No Nausea, No Vomiting, No Diarrhea Genitourinary Symptoms: No Dysuria Musculoskeletal: Other (Rib pain and R shoulder) Skin: No Rash Neurological: No Dizziness Psychological: No Anxiety, No Depression Objective Exam General Appearance: mild distress Neurologic Exam: alert, oriented x 3, cooperative Skin Exam: normal color, warm, dry, No rash Eye Exam: No scleral icterus Ears, Nose, Throat Exam: dry mucous membranes Neck Exam: normal inspection Respiratory Exam: wheezing (Patient has coarse breath sounds and significant wheeze diffusely bilateral lungs) Cardiovascular Exam: regular rate/rhythm, normal heart sounds, No murmur, No friction rub, No gallop Gastrointestinal/Abdomen Exam: soft, normal bowel sounds, distention (mildly), No tenderness Extremity Exam: normal inspection, limited range of motion (R shoulder has decreased ROM) Pelvic Exam: deferred Rectal Exam: deferred OBJECTIVE DATA Vital Signs: Vital Signs - 24 hr Temp Pulse Resp BP Pulse Ox 10/17/19 07:31 84 18 95 10/17/19 05:00 106 H 20 95 10/17/19 03:24 106 H 20 10/17/19 00:42 98.3 F 114 H 20 139/67 96 10/16/19 23:39 114 H 20 96 10/16/19 21:00 98.0 F 117 H 20 146/68 96 10/16/19 19:35 117 H 20 96 10/16/19 17:30 97.9 F 116 H 20 136/64 96 10/16/19 14:00 110 H 20 96 10/16/19 12:27 98.1 F 121 H 20 127/65 96 10/16/19 12:05 120 H 24 Pain Assessment - Last Documented Pain Intensity 0 Pain Scale Used 0-10 Pain Scale Intake and Output: Intake & Output 10/14/19 10/15/19 10/16/19 10/17/19 11:59 11:59 11:59 11:59 Intake Total 784 4206 3073 Output Total 1999 1950 Balance 480 2267 1123 Weight 85.6 kg 87.2 kg Radiology Exams: Radiology Procedures Category Date Time Status CHEST WITH CONTRAST [CT] Routine Exams 10/15/19 14:32 Completed HEAD WITHOUT CONTRAST [CT] Stat Exams 10/15/19 12:41 Completed Multi-Disciplinary Progress Notes: Multi-Disciplinary Progress Notes 10/16/19 12:47 Case Management Note by Clarice Farias S/Jeannie PATIENT- PATIENT MUCH MORE ALERT TODAY. PATIENT REPORTS SHE PLANS TO RETURN HOME TO HER DAUGHTERS HOUSE. PATIENT FEELS CONFIDENT SHE WILL BE ABLE TO GET AROUND WHILE HER DAUGHTER IS AT WORK. SHE DENIES THE NEED FOR ANY NEW EQUIPMENT OR SERVICES AT TIME OF DC. WILL CONTINUE TO FOLLOW Initialized on 10/16/19 12:47 - END OF NOTE Assessment/Plan (1) Pneumonia Current Visit: Yes Status: Acute Qualifiers: Pneumonia type: due to unspecified organism Laterality: right Lung location: unspecified part of lung Qualified Code(s): J18.9 - Pneumonia, unspecified organism Assessment & Plan: Patient is afebrile but continues to have cough. She is on nebs, steroids and mucinex at max dose. She is on Levaquin and azith was DC today. She will continue with pulmonary toilet as well. Code(s): J18.9 - PNEUMONIA, UNSPECIFIED ORGANISM (2) Constipation Current Visit: Yes Status: Acute Assessment & Plan: Patient did not like suppository given to her yesterday. Will try MOM as she has used this in the past Code(s): K59.00 - CONSTIPATION, UNSPECIFIED (3) Ribs, multiple fractures Current Visit: Yes Status: Acute Qualifiers: Encounter type: subsequent encounter Fracture type: closed Laterality: right Fracture healing: with routine healing Qualified Code(s): S22.41XD - Multiple fractures of ribs, right side, subsequent encounter for fracture with routine healing Code(s): S22.49XA - MULTIPLE FRACTURES OF RIBS, UNSP SIDE, INIT FOR CLOS FX (4) Shoulder pain, acute Current Visit: Yes Status: Acute Assessment & Plan: R shoulder xray with no acute bony injury. Patient could have some underlying soft tissue inj. Will have her continue with PT Code(s): M25.519 - PAIN IN UNSPECIFIED SHOULDER (5) Asthma Current Visit: Yes Status: Acute Assessment & Plan: Acute on chronic asthma exacerbation. Will continue with nebs and steroids. If patient does not improve overnight, will start on Theophylline. Plan for patient to DC to [facility] tomorrow if she is saturating well and is less short of breath on exertion. She may require oxygen therapy at home temporarily. Code(s): J45.909 - UNSPECIFIED ASTHMA, UNCOMPLICATED (6) Obstructive sleep apnea Current Visit: Yes Status: Acute Assessment & Plan: cpap overnight Code(s): G47.33 - OBSTRUCTIVE SLEEP APNEA (ADULT) (PEDIATRIC)
--- NOTE | 2019-10-17 10:30 | XRAY ---
Indication: Pain following fall in September 2019. Comparison: None 3 views of the right shoulder demonstrates osteopenia, mild AC degenerative hypertrophy, mild multilevel degenerative spondylosis, and multiple right rib fractures with fixation hardware. No other bony, articular, or soft tissue abnormalities.
[2019-10-17] MEDS: Mucinex 600MG ER Tabs PO SCH (10:34)
[2019-10-17] MEDS: Colace 100 MG PO SCH (10:34)
[2019-10-17] MEDS ORDERED: MARY'S MOUTHWASH PO SCH (16:00)
[2019-10-17] MEDS: MARY'S MAGIC MOUTHWASH PO SCH ×3 (16:50→22:12)
[2019-10-17] MEDS: MILK OF MAGNESIA 30 ML PO PRN (19:38)
[2019-10-17] MEDS: ceLEXa 20 MG PO SCH (22:09)
[2019-10-17] MEDS: LEVOFLOXACIN 750MG/150ML D5W 750 MG/150 ML BAG IV SCH (22:09)
[2019-10-17] MEDS: Wellbutrin XL 150 MG PO SCH (22:10)
[2019-10-18] MEDS: DUONEB 0.5-3 MG/3 ml Neb IH SCH ×5 (02:36→19:45)
[2019-10-18] MEDS ORDERED: DUONEB 0.5-3 MG/3 ml Neb IH ONE (02:45)
[2019-10-18] MEDS: solu-MEDROL 125 MG IV SCH ×4 (05:41→23:43)
[2019-10-18 05:49] LABS: Hematocrit 31.6 % (35-47); Mean Cell Volume 92.4 fl (78-100); Mean Corpuscular Hemoglobin 29.2 pg (26-32); Mean Corpuscular Hgb Concent. 31.6 g/dl (32-36); Mean Platelet Volume 11.5 fl (7.5-11.0); Platelet Count 185 K/mm3 (150-450); Red Blood Count 3.42 M/mm3 (4.1-5.4); Red Cell Distribution Width 14.7 % (11.5-14.0); White Blood Count 8.8 K/mm3 (4.0-10.5)
[2019-10-18 06:11] LABS: ANION GAP 8.4 MEQ/L (5-15); BLOOD UREA NITROGEN 15 mg/dL (7-17); CHLORIDE 107 mmol/L (98-107); Calcium 8.8 mg/dL (8.4-10.2); Carbon Dioxide 28 mmol/L (22-30); Creatinine 1 0.52 mg/dL (0.52-1.04); Glucose 195 mg/dL (74-106); NT PRO BNP 1340 pg/mL (0-1800); Potassium 3.7 mmol/L (3.5-5.1); SODIUM 140 mmol/L (137-145)
[2019-10-18 06:25] LABS: Lymphocytes 7 % (24-44); Monocyte 2 % (0.0-12.0); Neutrophils 91 % (36.0-66.0); Total Cells Counted 100
[2019-10-18 06:26] LABS: Platelet Estimate NORMAL (NORMAL)
[2019-10-18] MEDS: ADVAIR 250-50 DISKUS 14 DOSE IH SCH ×2 (07:35→19:45)
--- NOTE | 2019-10-18 09:10 | XRAY ---
Indication: Pneumonia. Comparison: October 15, 2019. Portable chest unchanged again demonstrating bibasilar infiltrates/atelectasis/effusions, borderline cardiomegaly, and multiple right rib fractures. No new cardiopulmonary abnormalities.
[2019-10-18] MEDS: MARY'S MAGIC MOUTHWASH PO SCH ×6 (09:40→22:13)
[2019-10-18] MEDS: Colace 100 MG PO SCH (10:37)
[2019-10-18] MEDS: ENOXAPARIN SODIUM SQ SCH (10:38)
[2019-10-18] MEDS: Mucinex 600MG ER Tabs PO SCH (10:39)
[2019-10-18] MEDS: NovoLOG Insulin SQ PRN ×3 (13:03→20:40)
[2019-10-18] MEDS: MILK OF MAGNESIA 30 ML PO PRN (13:03)
[2019-10-18] MEDS: ceLEXa 20 MG PO SCH (20:39)
[2019-10-18] MEDS: LEVOFLOXACIN 750MG/150ML D5W 750 MG/150 ML BAG IV SCH (20:39)
[2019-10-18] MEDS: Wellbutrin XL 150 MG PO SCH (20:39)
[2019-10-19] MEDS: DUONEB 0.5-3 MG/3 ml Neb IH SCH ×4 (00:23→11:21)
[2019-10-19 05:34] LABS: Hematocrit 32.3 % (35-47); Hemoglobin 10.4 gm/dl (12.0-16.0); Mean Corpuscular Hemoglobin 29.6 pg (26-32); Mean Corpuscular Hgb Concent. 32.2 g/dl (32-36); Mean Platelet Volume 11.2 fl (7.5-11.0); Platelet Count 210 K/mm3 (150-450); Red Blood Count 3.51 M/mm3 (4.1-5.4); Red Cell Distribution Width 14.8 % (11.5-14.0); White Blood Count 9.1 K/mm3 (4.0-10.5)
[2019-10-19 06:03] LABS: ALBUMIN 3.4 g/dL (3.5-5.0); ALKALINE PHOSPHATASE 109 U/L (38-126); ANION GAP 8.2 MEQ/L (5-15); BLOOD UREA NITROGEN 19 mg/dL (7-17); CHLORIDE 103 mmol/L (98-107); Calcium 8.9 mg/dL (8.4-10.2); Carbon Dioxide 31 mmol/L (22-30); Creatinine 1 0.53 mg/dL (0.52-1.04); Glucose 214 mg/dL (74-106); Potassium 4.2 mmol/L (3.5-5.1); SGOT/AST 19 U/L (14-36); SGPT/ALT 21 U/L (0-35); SODIUM 138 mmol/L (137-145); Total Protein 6.8 g/dL (6.3-8.2)
[2019-10-19] MEDS: solu-MEDROL 125 MG IV SCH ×2 (06:16→11:22)
[2019-10-19] MEDS: ADVAIR 250-50 DISKUS 14 DOSE IH SCH (07:21)
[2019-10-19] MEDS: Colace 100 MG PO SCH (07:45)
[2019-10-19] MEDS: NovoLOG Insulin SQ PRN ×2 (07:45→11:21)
[2019-10-19] MEDS: Mucinex 600MG ER Tabs PO SCH (07:45)
[2019-10-19] MEDS: ENOXAPARIN SODIUM SQ SCH (07:45)
[2019-10-19] MEDS: MARY'S MAGIC MOUTHWASH PO SCH ×3 (08:05→12:37)
--- NOTE | 2019-10-19 08:34 | XRAY ---
Indication: Follow-up pneumonia. Comparison: One day earlier. Portable chest again demonstrates bibasilar infiltrates/atelectasis/effusions slightly worsened on the left. Stable borderline cardiomegaly and multiple right rib fractures. No new cardiopulmonary abnormalities.
--- NOTE | 2019-10-19 08:34 | PCM.NOTE ---
Date and Time: 10/19/19833 Subjective Assessment: 74 yr old female seen and examined this am. Patient reports that she is stilll short of breath. She did get up to go to the bathroom without her oxygen and became extremely SOB. Patient reports that she had swelling in her legs and was wearing compression socks which helped. Patient - Review of Systems Constitutional: No Fever Respiratory: Cough, Short Of Breath, Wheezing Cardiac: Edema, No Chest Pain Abdominal/Gastrointestinal: No Abdominal Pain, No Nausea, No Vomiting, No Diarrhea Genitourinary Symptoms: No Symptoms Musculoskeletal: Other (R shoulder pain R sided rib pain) Skin: Dryness Neurological: No Headache Psychological: No Symptoms Objective Exam General Appearance: mild distress, alert Neurologic Exam: alert, oriented x 3, cooperative, normal mood/affect Skin Exam: normal color, warm, dry (peeling skin on lower extremities bilateral) , No rash, No jaundice Eye Exam: eyes nml inspection Ears, Nose, Throat Exam: moist mucous membranes Neck Exam: normal inspection Respiratory Exam: crackles/rales, wheezing (r>l), other (Patient on 2L of oxygen ), No lungs clear, No rhonchi Cardiovascular Exam: regular rate/rhythm, normal heart sounds, No murmur, No friction rub Gastrointestinal/Abdomen Exam: soft, normal bowel sounds, No tenderness, No distention Extremity Exam: pedal edema, other (Decreased ROM), No tenderness Back Exam: normal inspection Pelvic Exam: deferred Rectal Exam: deferred OBJECTIVE DATA Vital Signs: Vital Signs - 24 hr Temp Pulse Resp BP Pulse Ox 10/19/19 07:19 97.8 F 101 H 20 141/79 97 10/19/19 07:00 101 H 20 97 10/19/19 04:00 97.6 F 106 H 16 139/69 97 10/19/19 03:47 106 H 18 97 10/19/19 00:41 124 H 18 98 10/19/19 00:00 98.0 F 109 H 19 149/80 98 10/18/19 20:00 98.0 F 108 H 22 147/80 95 10/18/19 19:45 111 H 18 95 10/18/19 16:53 108 H 18 94 L 10/18/19 16:00 97.9 F 114 H 18 148/77 96 10/18/19 12:00 98.0 F 130 H 18 168/79 95 Pain Assessment - Last Documented Pain Intensity 0 Pain Scale Used 0-10 Pain Scale Intake and Output: Intake & Output 10/16/19 10/17/19 10/18/19 10/19/19 11:59 11:59 11:59 11:59 Intake Total 4267 3553 3786 1540 Output Total 1999 2150 1900 1000 Balance 2267 1403 1886 540 Weight 87.2 kg 89.6 kg 89.8 kg Lab Results: Accuchecks Date 10/19/19 Date 10/18/19 Date 10/18/19 Date 10/18/19 Time 07:30 Time 21:30 Time 16:30 Time 11:30 Accucheck Value: 211 Accucheck Value: 264 Accucheck Value: 282 Accucheck Value: 250 Lab Results-Last 24 Hours 10/18/19 10/19/19 10/19/19 Range/Units 05:00 04:30 04:30 WBC 9.1 (4.0-10.5) K/mm3 RBC 3.51 L (4.1-5.4) M/mm3 Hgb 10.4 L (12.0-16.0) gm/dl Hct 32.3 L (35-47) % MCV 92.0 (78-100) fl MCH 29.6 (26-32) pg MCHC 32.2 (32-36) g/dl RDW 14.8 H (11.5-14.0) % Plt Count 210 (150-450) K/mm3 MPV 11.2 H (7.5-11.0) fl Sodium 138 (137-145) mmol/L Potassium 4.2 (3.5-5.1) mmol/L Chloride 103 (98-107) mmol/L Carbon Dioxide 31 H (22-30) mmol/L Anion Gap 8.2 (5-15) MEQ/L BUN 19 H (7-17) mg/dL Creatinine 0.53 (0.52-1.04) mg/dL Estimated GFR > 60.0 ML/MIN Glucose 214 H (74-106) mg/dL Hemoglobin A1c 5.86 (4.5-6.0) % Calcium 8.9 (8.4-10.2) mg/dL Total Bilirubin 0.30 (0.2-1.3) mg/dL AST 19 (14-36) U/L ALT 21 (0-35) U/L Alkaline Phosphatase 109 (38-126) U/L Serum Total Protein 6.8 (6.3-8.2) g/dL Albumin 3.4 L (3.5-5.0) g/dL Radiology Exams: Radiology Procedures Category Date Time Status CHEST 1 VIEW (PORTABLE) Routine Exams 10/18/19 08:40 Completed CHEST 1 VIEW (PORTABLE) Routine Exams 10/19/19 06:14 Taken SHOULDER Routine Exams 10/17/19 10:19 Completed Assessment/Plan (1) Pneumonia Status: Acute Qualifiers: Pneumonia type: due to unspecified organism Laterality: right Lung location: unspecified part of lung Qualified Code(s): J18.9 - Pneumonia, unspecified organism Assessment & Plan: Patient is on levaquin. Her antibiotic course should be complete. No WBC and afebrile. No new signs of pneumonia detected on xray Code(s): J18.9 - PNEUMONIA, UNSPECIFIED ORGANISM (2) Ribs, multiple fractures Status: Acute Qualifiers: Encounter type: subsequent encounter Fracture type: closed Laterality: right Fracture healing: with routine healing Qualified Code(s): S22.41XD - Multiple fractures of ribs, right side, subsequent encounter for fracture with routine healing Assessment & Plan: No hardware changes detected on xray. tenderizer tender R side chest wall. Code(s): S22.49XA - MULTIPLE FRACTURES OF RIBS, UNSP SIDE, INIT FOR CLOS FX (3) Constipation Status: Acute Code(s): K59.00 - CONSTIPATION, UNSPECIFIED (4) Shoulder pain, acute Status: Acute Code(s): M25.519 - PAIN IN UNSPECIFIED SHOULDER (5) Dyspnea Status: Acute Code(s): R06.00 - DYSPNEA, UNSPECIFIED (6) Asthma Status: Acute Code(s): J45.909 - UNSPECIFIED ASTHMA, UNCOMPLICATED
[2019-10-19 12:38] VITALS: BP 148/78; PULSE 102; O2SAT 97
--- NOTE | 2019-10-21 21:09 | PCM.DS ---
Discharge Summary Date of Admission: 10/18/19 08:30 Date of Discharge: 10/19/2019 Admitting Physician: BENJAMIN HERNÁNDEZ Primary Care Provider: BENJAMIN HERNÁNDEZ Allergies Allergies No Known Drug Allergies Allergy (Verified 10/15/19 04:43) Hospital Summary - Hospital Course Hospital Course: is a 74 year old female seen this am following ER admission for fever asthma exacerbation RSV and pneumonia. Patient reports that she had a recent fall and sustained multiple rib fractures and had surgery on Sep 13 to repair the fractures. Patient reports she was discharged to [facility] for rehab and was then discharged on Sat to her daughter's home. Patient had been started on antibiotic for cough prior to admission but was not improving. Patient started having increased shortness of breath and dyspnea with minimal exertion so was brought in by EMS to ER. Patient reports that since admission she has been doing slightly better. She has been using the incentive spirometry and chest flutter therapy. She feels the flutter therapy is helping and she has noticed improved breathing. She gets short of breath when getting up to go to the bathroom. She reports productive cough. She has a reported hx of JEANNETTE and wears her CPAP nightly as directed. She is not on oxygen at home. She has a hx of asthma and used Breo and rescue inhaler. Patient reports she still has right sided chest wall pain where her rib fractures are and R shoulder pain that developed shortly after the fall. Patient was brought to ER by EMS with chief complaint of fever and shortness of breath.. Patient reports initially started as upper respiratory congestion followed by cough and shortness of breath for the last 4 or 5 days, she's been started on Zithromax 2 days ago. MAXIMUM TEMPERATURE 100.3. Shortness of breath gets worse with minimal exertion and not short of breath at rest. Patient reports coughing up yellow-green thick sputum. Patient was admitted to inpatient. She was started on duonebs steroids and continuation of her antibiotics. Patient was initially on levaquin and azith. She was continued on levaquin. Patient was also started on incentive spirometry, mucinex and chest flutter therapy. She continued to get SOB with minimal exertion. She continued to require oxygen and was not improving. Repeat xrays reported worsening of pleural effusions. Patient also had imaging for her R shoulder which was neg for fx and PT as well which started to help with ROM. Patient had tx for constipation as well. Patient was not improving and appeared to getting worse on imaging. It was felt that patient would benefit from a transfer to facility that had a staff automotive fuel systems converter. Hospitalist, at [facility] where patient actually had her surgery following her fall and initial tx, accepted admission. Patient was transferred shortly after. - Vitals & Intake/Output Vital Signs: Vital Signs Temperature 97.8 F 10/19/19 12:37 Pulse Rate 102 H 10/19/19 12:37 Respiratory Rate 20 10/19/19 12:37 Blood Pressure 148/78 10/19/19 12:37 O2 Sat by Pulse Oximetry 97 10/19/19 12:37 Intake & Output: Intake & Output 10/19/19 10/20/19 10/21/19 10/22/19 11:59 11:59 11:59 11:59 Intake Total 2020 480 Output Total 1000 800 Balance 1020 -320 Weight 89.8 kg - Lab Result Diagrams: 10/19/19 04:30 10/19/19 04:30 Micro Results-Entire Visit: Microbiology 10/15/19 02:34 Blood Culture Gram Stain - Final Blood Not Reportable Blood Culture - Final NO GROWTH 10/15/19 02:20 Blood Culture Gram Stain - Final Blood Not Reportable Blood Culture - Final NO GROWTH - Procedures and Test Procedures and Tests throughout Hospitalization: Therapy Orders & Screens 10/15/19 02:24 Peak Expiratory Flow Rate ONCE Comment: Reason For Exam: 10/15/19 02:25 Respiratory Therapy Assessment DAILY Comment: 10/15/19 03:35 Peak Expiratory Flow Rate DAILY Comment: Reason For Exam: Diagnosis: pneumonia Respiratory Therapy Assessment DAILY Comment: Diagnosis: pneumonia 10/15/19 03:36 Oxygen NASAL CANNULA 2 lpm Comment: Diagnosis: pneumonia 10/15/19 04:42 OT Screen per Nursing Assess ONCE Comment: Protocol Order Physician Instructions: Greater than 3 points order OT Admission Screening Reason For Exam: Triggered on Admission Diagnosis: pneumonia Open Wound/Cellutlitis/Pressure Ulcers: No Acute Fx/ORIF/Change in wt bearing status: Yes Severe MUSCULOSKELETAL pain: No ADL Dysfunction: Yes Acute CVA w/Hemiparesis/Hemiplegia: No Decreased Functional Mobility/Strength: Yes Sprain/Strain: No Acute Post-op Mobility Dysfunction: No Total Points: 9 PT Screen per Nursing Assess ONCE Comment: Protocol Order Physician Instructions: Greater than 3 points order PT Admission Screenin Reason For Exam: Triggered on Admission Diagnosis: pneumonia Open Wound/Cellutlitis/Pressure Ulcers: No Acute Fx/ORIF/Change in wt bearing status: Yes Severe MUSCULOSKELETAL pain: No ADL Dysfunction: Yes Acute CVA w/Hemiparesis/Hemiplegia: No Decreased Functional Mobility/Strength: Yes Sprain/Strain: No Acute Post-op Mobility Dysfunction: No Total Points: 9 10/15/19 06:48 Flutter Therapy UD Comment: Diagnosis: pneumonia 10/15/19 07:00 Respiratory MDI BID Comment: ADVAIR 250/50 1 PUFF BID Diagnosis: pneumonia 10/15/19 18:15 PT Eval & Treat (MD Order) ROUTINE Reason for Eval:: Pain having in patient right shoulder- needs evaluation for range of motion. Ambulate patient and evaluate for deconditioning Diagnosis: pneumonia 10/15/19 18:18 Incentive Spirometry UD Comment: Diagnosis: pneumonia 10/15/19 21:41 BiPap/CPAP ROUTINE Comment: Diagnosis: pneumonia Discharge Exam General Appearance: mild distress Neurologic Exam: alert, oriented x 3, cooperative, normal mood/affect Eye Exam: eyes nml inspection Respiratory Exam: diminished breath sounds, crackles/rales, wheezing, No lungs clear, No rhonchi Cardiovascular Exam: regular rate/rhythm, normal heart sounds, No murmur, No friction rub, No gallop Gastrointestinal/Abdomen Exam: soft, normal bowel sounds, No tenderness, No distention Pelvic Exam: deferred Rectal Exam: deferred Back Exam: normal inspection Extremity Exam: pedal edema, other (Improved ROM with R shoulder) Final Diagnosis/Problem List - Final Discharge Diagnosis/Problem (1) Pneumonia Status: Acute Assessment & Plan: Patient would have received 5 days of levaquin. She may benefit from continuation due to pleural effusions Code(s): J18.9 - PNEUMONIA, UNSPECIFIED ORGANISM (2) Ribs, multiple fractures Status: Acute Assessment & Plan: Healing and no hardware shifting noted on CT exam Code(s): S22.49XA - MULTIPLE FRACTURES OF RIBS, UNSP SIDE, INIT FOR CLOS FX (3) Constipation Status: Acute Assessment & Plan: Patient did well on MOM. She needs to continue on maintenance therapy Code(s): K59.00 - CONSTIPATION, UNSPECIFIED (4) Shoulder pain, acute Status: Acute Assessment & Plan: Shoulder xray was neg. Improved ROM following PT Code(s): M25.519 - PAIN IN UNSPECIFIED SHOULDER (5) Dyspnea Status: Acute Assessment & Plan: Patient has not improved and actually has had worsening dyspnea. Multifactorial due to pneumonia, asthma, rib fx, pleural effusions. Code(s): R06.00 - DYSPNEA, UNSPECIFIED (6) Asthma Status: Acute Assessment & Plan: Patient is getting steroids and breathing treatments Code(s): J45.909 - UNSPECIFIED ASTHMA, UNCOMPLICATED - [facility]charge [facility]position[facility] Condition: Stable Prescriptions: No Action Citalopram Hydrobromide 20 mg* [ceLEXa 20 MG] 20 mg PO HS Bupropion HCl Xl 150 mg [Wellbutrin XL 150 MG] 450 mg PO HS Oxycodone HCl [Oxyir] 5 mg PO Q4HPRN PRN PRN Reason: Severe Pain Ipratropium/Albuterol Sulfate [Iprat-Albut 0.5-3(2.5) mg/3 ml] 3 ml IH Q6H Guaifenesin 400 mg PO TID Fluticasone/Vilanterol [Breo Ellipta 200-25 Mcg INH] 1 puff IH HS Bisacodyl 10 mg [Dulcolax 10 MG SUPP] 10 mg RC DAILY PRN PRN PRN Reason: Constipation Docusate Sodium [Colace] 100 mg PO DAILY Acetaminophen 500 mg [Tylenol Extra Strength 500 mg] 1,000 mg PO Q6HPRN PRN PRN Reason: Pain Follow up with: BENJAMIN HERNÁNDEZ [Primary Care Provider] - 1 Week
== END 2019-10-19 15:25 | disposition short-term general hospital (02) | DRG 194 ==
LOC: ED 01:47 → UNDOADMOB 03:25 → MED SURG 03:25 → UNDODISOB 03:35 → OBSVTOIN 10-18 08:30
PROVIDERS: ADMIT Family Medicine; ATTEND Family Medicine
DX: J18.9 Pneumonia, unspecified organism (principal); S22.49XA Multiple fractures of ribs, unspecified side, initial encounter for closed fracture; J45.901 Unspecified asthma with (acute) exacerbation; K59.00 Constipation, unspecified; M25.519 Pain in unspecified shoulder; F41.9 Anxiety disorder, unspecified; J12.1 Respiratory syncytial virus pneumonia
CPT/HCPCS: 36415; 36600; 70450; 71045; 71260; 73030; 80048; 80053; 81001; 82375; 82803; 82962; 83036; 83605; 83735; 83880; 84484; 85025; 85027; 85379; 87040; 87631; 93005; 93041; 93268; 93306; 94003; 94150; 94640; 94660; 94667; 94668; 94760; 96374; 99285; 99291; G0378; J0456; J1650; J1956; J2930; 97110-GP; A9270-GY

== ENCOUNTER 2020-07-12 15:56 | Emergency (ER) | payer MEDICARE ==
[2020-07-12] MEDS ORDERED: XYLOCAINE 1%/Epi 1:100000 MDV 20 ML IJ ONE (16:17)
--- NOTE | 2020-07-12 16:18 | ERPHSYRPT ---
- History of Present Illness Time Seen by Provider: 07/12/20 16:00 Source: patient Exam Limitations: no limitations Patient Subjective Stated Complaint: laceration Triage Nursing Assessment: pt to ED with 2 cm lac to L laury. states pain 2/10. full ROM, no loss sensation, cap refil < 3 sec. strength appropraite. reports tetanus shot up to date. states she was cutting into a ham and sliced herself. bleeding controlled on arrival. Physician History: Left index finger laceration. Dorsal surface left MCP. Patient cut herself with a knife just prior to arrival. She is up-to-date on her vaccinations. No other injuries. Up-to-date tetanus shot. No obvious laceration injury. Patient states she has full strength full range of motion without difficulty. Timing/Duration: today Severity: moderate Modifying Factors: Improves With: nothing Associated Symptoms: denies symptoms Allergies/Adverse Reactions: No Known Drug Allergies Allergy (Verified 07/12/20 16:12) Home Medications: Bupropion HCl Xl 150 mg [Wellbutrin XL 150 MG] 450 mg PO HS 08/14/19 [History] Citalopram Hydrobromide 20 mg* [ceLEXa 20 MG] 20 mg PO HS 08/14/19 [History] Acetaminophen 500 mg [Tylenol Extra Strength 500 mg] 1,000 mg PO Q6HPRN PRN 10/15/19 [History] Fluticasone/Vilanterol [Breo Ellipta 200-25 Mcg INH] 1 puff IH HS 10/15/19 [History] Guaifenesin 400 mg PO TID 10/15/19 [History] Ascorbic Acid [Vitamin C] 500 mg PO DAILY 07/12/20 [History] Cholecalciferol (Vitamin D3) [Vitamin D3] 1 tab PO DAILY 07/12/20 [History] Magnesium [Magnesium Gluconate] 200 mg PO DAILY 07/12/20 [History] Ubidecarenone [Co Q10] 1 tab PO DAILY 07/12/20 [History] Vitamin B Complex 1 tab PO DAILY 07/12/20 [History] Hx Tetanus, Diphtheria Vaccination/Date Given: Yes Hx Influenza Vaccination/Date Given: Yes Hx Pneumococcal Vaccination/Date Given: No Immunizations Up to Date: Yes Travel Risk - International Travel Have you traveled outside of the country in past 3 weeks: No - Coronavirus Screening Are you exhibiting any of the following symptoms?: No Close contact with a COVID-19 positive Pt in past 14-21 Days: No - Review of Systems Constitutional: No Fever, No Chills Eyes: No Symptoms Ears, Nose, & Throat: No Symptoms Respiratory: No Cough, No Dyspnea Cardiac: No Chest Pain, No Edema, No Syncope Abdominal/Gastrointestinal: No Abdominal Pain, No Nausea, No Vomiting, No Diarrhea Genitourinary Symptoms: No Dysuria Musculoskeletal: No Back Pain, No Neck Pain Skin: Other (left finger laceration ), No Rash Neurological: No Dizziness, No Focal Weakness, No Sensory Changes Psychological: No Symptoms Endocrine: No Symptoms All Other Systems: Reviewed and Negative - Past Medical History Pertinent Past Medical History: Yes Neurological History: No Pertinent History ENT History: No Pertinent History Cardiac History: No Pertinent History Respiratory History: Asthma, Pneumonia Endocrine Medical History: No Pertinent History Musculoskeletal History: Arthritis GI Medical History: No Pertinent History History: No Pertinent History Psycho-Social History: Anxiety, Depression Female Reproductive Disorders: No Pertinent History - Past Surgical History Past Surgical History: Yes Neuro Surgical History: No Pertinent History Cardiac: No Pertinent History Respiratory: No Pertinent History Gastrointestinal: Cholecystectomy Genitourinary: No Pertinent History Musculoskeletal: Orthopedic Surgery Female Surgical History: No Pertinent History Other Surgical History: Spleen repaired, knee replacements, pt states fluid drained from lungs - Social History Smoking Status: Never smoker Exposure to second hand smoke: No Alcohol Use: None Drug Use: none Patient Lives Alone: No - Female History Hx Now: No - Nursing Vital Signs Nursing Vital Signs: Initial Vital Signs Temperature 98.1 F 07/12/20 16:05 Pulse Rate 98 H 07/12/20 16:05 Respiratory Rate 18 07/12/20 16:05 Blood Pressure 144/82 07/12/20 16:05 O2 Sat by Pulse Oximetry 98 07/12/20 16:05 Pain Scale Pain Intensity 0 - Physical Exam General Appearance: no apparent distress, alert Eye Exam: PERRL/EOMI, eyes nml inspection Ears, Nose, Throat Exam: normal ENT inspection, TMs normal, pharynx normal, moist mucous membranes Neck Exam: normal inspection, non-tender, supple, full range of motion Respiratory Exam: normal breath sounds, lungs clear, No respiratory distress Cardiovascular Exam: regular rate/rhythm, normal heart sounds, normal peripheral pulses Gastrointestinal/Abdomen Exam: soft, normal bowel sounds, No tenderness, No mass Back Exam: normal inspection, normal range of motion, No CVA tenderness, No vertebral tenderness Extremity Exam: normal inspection, normal range of motion, pelvis stable, other (Left dorsal index finger laceration. 2 cm. Full range of motion. No signs of tendon laceration. No foreign body on examination.) Neurologic Exam: alert, oriented x 3, cooperative, normal mood/affect, nml cerebellar function, nml station & gait, sensation nml, No motor deficits Skin Exam: normal color, warm, dry, No rash Lymphatic Exam: No adenopathy SpO2: 98 Procedures - Laceration/Wound Repair Left Finger Wound Location: Left Wound Length (cm): 2 Wound's Depth, Shape: superficial Wound Explored: clean Irrigated: Yes Hibiclens Prep: Yes Anesthesia: 1% lidocaine w/ Epi Wound Debrided: minimal Wound Repaired With: sutures Suture Size/Type: 4-0 Number of Sutures: 3 Layer Closure?: No Sterile Dressing Applied?: Yes Splint Applied?: Yes Sling Applied?: No - Course Nursing assessment & vital signs reviewed: Yes Ordered Tests: Medication Summary Discontinued Medications Generic Name Dose Route Start Last Admin Trade Name Freq PRN Reason Stop Dose Admin Lidocaine/Epinephrine 5 ml 07/12/20 16:17 07/12/20 16:25 Xylocaine 1%/Epi 1:[id number] Mdv 20 Ml IJ 07/12/20 16:18 5 ml STAT ONE Administration Lidocaine/Epinephrine Confirm 07/12/20 16:20 Xylocaine 1%/Epi 1:[id number] Mdv 20 Ml Administered 07/12/20 16:21 Dose 5 ml .ROUTE .STK-MED ONE - Progress Progress: improved Progress Note: 07/12/20 17:28 Laceration repaired. See procedure note for full details. Basic wound care. No need for tetanus shot. No signs of tendon injury. Patient need close follow-up with PCP and wound check. Suture removal in 7 to 10 days. - Departure Departure Disposition: Extended Care Facility Clinical Impression: Laceration of left index finger Condition: Stable Critical Care Time: No Referrals: PARDEEP SILVERIO MD [Primary Care Provider] - Instructions: Wound Care (DC), Laceration Repair With Stitches (DC) Additional Instructions: Suture removal in 7-10 days
[2020-07-12] MEDS ORDERED: XYLOCAINE 1%/Epi 1:100000 MDV 20 ML ONE (16:20)
[2020-07-12 17:16] VITALS: BP 136/74; PULSE 68
[2020-07-12 17:28] VITALS: O2SAT 98
== END 2020-07-12 17:16 | disposition home or self-care (01) ==
LOC: ED 15:56
DX: S61.211A Laceration without foreign body of left index finger without damage to nail, initial encounter (principal); W26.0XXA Contact with knife, initial encounter; Y93.G3 Activity, cooking and baking; Z79.899 Other long term (current) drug therapy
CPT/HCPCS: 12011; 96372; 99283

== ENCOUNTER 2023-09-23 19:52 | Emergency (ER) | payer MEDICARE ==
--- NOTE | 2023-09-23 19:56 | ERPHSYRPT ---
- History of Present Illness Time Seen by Provider: 09/23/23 19:56 Source: patient Exam Limitations: no limitations Allergies/Adverse Reactions: No Known Drug Allergies Allergy (Verified 09/23/23 20:32) Home Medications: Albuterol Sulfate [Proair Respiclick] 90 mcg IH Q6H PRN PRN 02/13/21 [History] Azelastine Nasal [Astelin Nasal] 137 mcg INTRANASAL DAILY PRN PRN 02/13/21 [History] Bumetanide 1 mg [Bumex 1 mg] 1 mg PO DAILY 02/13/21 [History] Potassium Chloride Tab* [Klor Con 10 MEQ] 10 meq PO DAILY 02/13/21 [History] Turmeric 400 mg PO DAILY 02/13/21 [History] buPROPion HCL [Wellbutrin Xl] 450 mg PO DAILY 02/13/21 [History] Fluticasone/Umeclidin/Vilanter [Trelegy Ellipta 100-62.5-25] 1 puff IH DAILY 09/23/23 [History] Omeprazole 40 mg PO DAILY 09/23/23 [History] Hx Tetanus, Diphtheria Vaccination/Date Given: Yes Hx Influenza Vaccination/Date Given: Yes Hx Pneumococcal Vaccination/Date Given: No - Past Medical History Pertinent Past Medical History: Yes Neurological History: No Pertinent History ENT History: No Pertinent History Cardiac History: No Pertinent History Respiratory History: Asthma, Pneumonia Endocrine Medical History: No Pertinent History Musculoskeletal History: Arthritis GI Medical History: No Pertinent History History: No Pertinent History Psycho-Social History: Anxiety, Depression Female Reproductive Disorders: No Pertinent History - Past Surgical History Past Surgical History: Yes Neuro Surgical History: No Pertinent History Cardiac: No Pertinent History Respiratory: No Pertinent History Gastrointestinal: Cholecystectomy Genitourinary: No Pertinent History Musculoskeletal: Orthopedic Surgery Female Surgical History: No Pertinent History Other Surgical History: Spleen repaired, knee replacements, pt states fluid drained from lungs - Social History Smoking Status: Never smoker Exposure to second hand smoke: No Alcohol Use: None Drug Use: none Patient Lives Alone: No - Nursing Vital Signs Nursing Vital Signs: Initial Vital Signs Temperature 98.0 F 09/23/23 20:12 Pulse Rate 120 H 09/23/23 20:12 Respiratory Rate 09/23/23 20:12 Blood Pressure 155/79 09/23/23 20:12 O2 Sat by Pulse Oximetry 95 09/23/23 20:12 Pain Scale Pain Intensity 7 - Course Nursing assessment & vital signs reviewed: Yes EKG Interpreted by Me: RATE (110), Sinus Tach, NORMAL AXIS, NORMAL INTERVALS, NORMAL QRS, NORMAL ST-T, Other (No acute ischemic changes on today's twelve-lead EKG.) Ordered Tests: Active Orders 24 hr Category Date Time Status CBC W DIFF Stat Lab 09/23/23 21:08 Completed CMP Stat Lab 09/23/23 21:08 Completed MAGNESIUM Stat Lab 09/23/23 21:08 Completed MONO SCREEN Stat Lab 09/23/23 21:21 Completed TROPONIN Q4H Lab 09/23/23 21:08 Completed UA W/RFX UR CULTURE Stat Lab 09/23/23 21:08 Completed Medication Summary Generic Name Dose Route Start Last Admin Trade Name Freq PRN Reason Stop Dose Admin Sodium Chloride 500 mls @ 500 mls/hr 09/23/23 21:49 Sodium Chloride 0.9% 500 Ml IV 09/23/23 22:48 .Q1H ONE Lab/Rad Data: Laboratory Result Diagrams 09/23/23 21:08 09/23/23 21:08 Laboratory Results 09/23/23 09/23/23 09/23/23 Range/Units 21:21 21:08 21:08 WBC (4.0-10.5) x10^3/uL RBC (4.1-5.4) x10^6/uL Hgb (12.0-16.0) g/dL Hct (35-47) % MCV (78-100) fL MCH (26-32) pg MCHC (32-36) g/dL RDW (11.5-14.0) % Plt Count (150-450) x10^3/uL MPV (7.5-11.0) fL Gran % (36.0-66.0) % Immature Gran % (Auto) (0.00-0.4) % Nucleat RBC Rel Count (0.00-0.1) % Eos # (Auto) (0-0.5) x10^3/uL Immature Gran # (Auto) (0.00-0.03) x10^3u/L Absolute Lymphs (auto) (1.0-4.6) x10^3/uL Absolute Monos (auto) (0.0-1.3) x10^3/uL Absolute Nucleated RBC (0.00-0.01) x10^3u/L Lymphocytes % (24.0-44.0) % Monocytes % (0.0-12.0) % Eosinophils % (0.00-5.0) % Basophils % (0.0-0.4) % Absolute Granulocytes (1.4-6.9) x10^3/uL Basophils # (0-0.4) x10^3/uL Sodium (137-145) mmol/L Potassium (3.5-5.1) mmol/L Chloride (98-107) mmol/L Carbon Dioxide (22-30) mmol/L Anion Gap (5-15) MEQ/L BUN (7-17) mg/dL Creatinine (0.52-1.04) mg/dL Estimated GFR ML/MIN Glucose (74-106) mg/dL Calcium (8.4-10.2) mg/dL Magnesium (1.6-2.3) mg/dL Total Bilirubin (0.2-1.3) mg/dL AST (14-36) U/L ALT (0-35) U/L Alkaline Phosphatase (38-126) U/L Troponin I < 0.012 (0.000-0.034) ng/mL Serum Total Protein (6.3-8.2) g/dL Albumin (3.5-5.0) g/dL Urine Color Yellow (Yellow) Urine Appearance Clear (Clear) Urine pH 7.5 (4.6-8.0) Ur Specific Spray 1.010 (1.005-1.030) Urine Protein Negative (Negative) Urine Glucose (UA) Negative (Negative) mg/dL Urine Ketones Negative (Negative) Urine Blood Negative (Negative) Urine Nitrite Negative (Negative) Urine Bilirubin Negative (Negative) Urine Urobilinogen 0.2 (0.2) mg/dL Ur Leukocyte Esterase Trace A (Negative) U Hyaline Cast (Auto) NONE SEEN (0-2) /LPF Urine Microscopic RBC 0-2 (0-5) /HPF Urine Microscopic WBC 3-5 (0-5) /HPF Ur Epithelial Cells None Seen (None Seen) /HPF Urine Bacteria None Seen (None Seen) /HPF Urine Culture Reflexed NO (NO) Monoscreen NEGATIVE (NEGATIVE) 09/23/23 09/23/23 Range/Units 21:08 21:08 WBC 12.0 H (4.0-10.5) x10^3/uL RBC 4.25 (4.1-5.4) x10^6/uL Hgb 13.0 (12.0-16.0) g/dL Hct 38.5 (35-47) % MCV 90.6 (78-100) fL MCH 30.6 (26-32) pg MCHC 33.8 (32-36) g/dL RDW 13.1 (11.5-14.0) % Plt Count 108 L (150-450) x10^3/uL MPV 11.5 H (7.5-11.0) fL Gran % 83.8 H (36.0-66.0) % Immature Gran % (Auto) 0.8 H (0.00-0.4) % Nucleat RBC Rel Count 0.0 (0.00-0.1) % Eos # (Auto) 0.01 (0-0.5) x10^3/uL Immature Gran # (Auto) 0.10 H (0.00-0.03) x10^3u/L Absolute Lymphs (auto) 0.78 L (1.0-4.6) x10^3/uL Absolute Monos (auto) 1.03 (0.0-1.3) x10^3/uL Absolute Nucleated RBC 0.00 (0.00-0.01) x10^3u/L Lymphocytes % 6.5 L (24.0-44.0) % Monocytes % 8.6 (0.0-12.0) % Eosinophils % 0.1 (0.00-5.0) % Basophils % 0.2 (0.0-0.4) % Absolute Granulocytes 10.07 H (1.4-6.9) x10^3/uL Basophils # 0.02 (0-0.4) x10^3/uL Sodium 131 L (137-145) mmol/L Potassium 4.2 (3.5-5.1) mmol/L Chloride 99 (98-107) mmol/L Carbon Dioxide 27 (22-30) mmol/L Anion Gap 9.8 (5-15) MEQ/L BUN 12 (7-17) mg/dL Creatinine 0.52 (0.52-1.04) mg/dL Estimated GFR 94.5 ML/MIN Glucose 153 H (74-106) mg/dL Calcium 8.9 (8.4-10.2) mg/dL Magnesium 1.9 (1.6-2.3) mg/dL Total Bilirubin 0.70 (0.2-1.3) mg/dL AST 27 (14-36) U/L ALT 25 (0-35) U/L Alkaline Phosphatase 90 (38-126) U/L Troponin I (0.000-0.034) ng/mL Serum Total Protein 6.7 (6.3-8.2) g/dL Albumin 3.9 (3.5-5.0) g/dL Urine Color (Yellow) Urine Appearance (Clear) Urine pH (4.6-8.0) Ur Specific Spray (1.005-1.030) Urine Protein (Negative) Urine Glucose (UA) (Negative) mg/dL Urine Ketones (Negative) Urine Blood (Negative) Urine Nitrite (Negative) Urine Bilirubin (Negative) Urine Urobilinogen (0.2) mg/dL Ur Leukocyte Esterase (Negative) U Hyaline Cast (Auto) (0-2) /LPF Urine Microscopic RBC (0-5) /HPF Urine Microscopic WBC (0-5) /HPF Ur Epithelial Cells (None Seen) /HPF Urine Bacteria (None Seen) /HPF Urine Culture Reflexed (NO) Monoscreen (NEGATIVE) - Progress Progress: improved, re-examined Progress Note: 09/23/23 21:52 This patient's medical issue is 1 of moderate complexity. Level complex in the workup performed is based on review of the patient's past medical history, review of the patient's medication list, review the patient's drug allergy list, history present illness and physical findings on examination. This patient's workup includes placement of intravenous line, infusion of normal saline solution, CBC, CMP, magnesium level, urinalysis and mono screen. 09/23/23 21:53 This patient's laboratory data results were interpreted by me. This patient does not have any acute, emergent medical issue based on the laboratory data. Patient states that she always has sinus tachycardia. This is not unusual for her. Counseled pt/family regarding: lab results, diagnosis, need for follow-up Medical Desision Making - Independent Historian Additional History obtained from: Family - Diagnostic Testing Diagnostic test were ordered, analyzed, and reviewed by me: Yes - Risk of complications Minimal Risk: Minimal risk of morbidity - Departure Departure Disposition: Home Clinical Impression: Weakness Condition: Stable Critical Care Time: No Referrals: [facility] [Primary Care Provider] - Follow up/PCP as directed Additional Instructions: Drink plenty of fluids. Take your medication as prescribed. Follow-up with your primary care provider for further evaluation and management. Call your primary care provider on 09/26/2023.
[2023-09-23 20:20] VITALS: TEMP 98
[2023-09-23 21:14] LABS: Absolute Neutrophil Ct (ANC) 10.07 x10^3/uL (1.4-6.9); BASOPHIL % 0.2 % (0.0-0.4); Basophil (Absolute #) 0.02 x10^3/uL (0-0.4); Eosinophil % 0.1 % (0.00-5.0); Eosinophil (Absolute #) 0.01 x10^3/uL (0-0.5); Hematocrit 38.5 % (35-47); IMMATURE GRAN % 0.8 % (0.00-0.4); Lymphocyte (Absolute #) 0.78 x10^3/uL (1.0-4.6); Lymphocytes % 6.5 % (24.0-44.0); Mean Cell Volume 90.6 fL (78-100); Mean Corpuscular Hemoglobin 30.6 pg (26-32); Mean Corpuscular Hgb Concent. 33.8 g/dL (32-36); Mean Platelet Volume 11.5 fL (7.5-11.0); Monocyte (Absolute #) 1.03 x10^3/uL (0.0-1.3); Monocytes % 8.6 % (0.0-12.0); Neutrophil % 83.8 % (36.0-66.0); Platelet Count 108 x10^3/uL (150-450); Red Blood Count 4.25 x10^6/uL (4.1-5.4); Red Cell Distribution Width 13.1 % (11.5-14.0)
[2023-09-23 21:17] LABS: Appearance Clear (Clear); Bacteria None Seen /HPF (None Seen); Bilirubin Negative (Negative); Blood Negative (Negative); Epithelial Cells None Seen /HPF (None Seen); Glucose, Urine Negative (Negative); Hyaline Casts NONE SEEN /LPF (0-2); Ketones Negative (Negative); Leukocyte Esterase Trace (Negative); Nitrite Negative (Negative); Ph 7.5 (4.6-8.0); Protein,Urine Dip Negative (Negative); RBC 0-2 /HPF (0-5); Urobilinogen 0.2 mg/dL (0.2)
[2023-09-23 21:23] LABS: ADD URINE CULTURE? NO (NO)
[2023-09-23 21:29] LABS: ALBUMIN 3.9 g/dL (3.5-5.0); ANION GAP 9.8 MEQ/L (5-15); BILIRUBIN,TOTAL 0.7 mg/dL (0.2-1.3); Calcium 8.9 mg/dL (8.4-10.2); Creatinine 1 0.52 mg/dL (0.52-1.04); EST GLOMERULAR FILTRATION RATE 94.5 ML/MIN; MAGNESIUM 1.9 mg/dL (1.6-2.3); Potassium 4.2 mmol/L (3.5-5.1); Total Protein 6.7 g/dL (6.3-8.2)
[2023-09-23] MEDS ORDERED: Sodium Chloride 0.9% 500 ML 500 ML IV ONE ×2 (21:49→21:52)
[2023-09-23 22:16] VITALS: BP 128/63; PULSE 107; RESP 22; O2SAT 96
== END 2023-09-23 22:30 | disposition home or self-care (01) ==
LOC: ED 19:52
DX: R53.1 Weakness (principal); Z79.899 Other long term (current) drug therapy
CPT/HCPCS: 36000; 36415; 80053; 81001; 83735; 84484; 85025; 86308; 93005; 99284

== ENCOUNTER 2024-04-26 12:49 | Emergency (ER) | payer MEDICARE, OTHER ==
--- NOTE | 2024-04-26 12:54 | ERPHSYRPT ---
- History of Present Illness Time Seen by Provider: 04/26/24 12:54 Source: patient, family Exam Limitations: no limitations Physician History: This is an 79-year-old white female patient of nurse practitioner Fred who presents by private vehicle for nasal congestion, sore throat and cough as well as additional complaint of left lower quadrant abdominal pain. Patient has not had any vomiting or diarrhea symptoms. Patient has been diagnosed in the past with RSV bronchiolitis. Patient also has a history of asthma and COPD but is not oxygen dependent. She has a history of anxiety and gastroesophageal reflux disease. Patient's room air oxygen saturation level is 96%. She denies chest pain. Patient complains of loss of taste and sense of smell. Timing/Duration: day(s) (6), other (Not necessarily worse but persistent) Cough Quality/Degree: mild, dry cough Possible Cause: occasional episodes Modifying Factors: Improves With: coughing Associated Symptoms: cough, nasal congestion, sore throat Allergies/Adverse Reactions: No Known Drug Allergies Allergy (Verified 04/26/24 12:59) Home Medications: Albuterol Sulfate [Proair Respiclick] 90 mcg IH Q6H PRN PRN 02/13/21 [History] Azelastine Nasal [Astelin Nasal] 137 mcg INTRANASAL DAILY PRN PRN 02/13/21 [History] Bumetanide 1 mg [Bumex 1 mg] 1 mg PO DAILY 02/13/21 [History] Potassium Chloride Tab* [Klor Con 10 MEQ] 10 meq PO DAILY 02/13/21 [History] Turmeric 400 mg PO DAILY 02/13/21 [History] buPROPion HCL [Wellbutrin Xl] 450 mg PO DAILY 02/13/21 [History] Fluticasone/Umeclidin/Vilanter [Trelegy Ellipta 100-62.5-25] 1 puff IH DAILY 09/23/23 [History] Omeprazole 40 mg PO DAILY 09/23/23 [History] Hx Tetanus, Diphtheria Vaccination/Date Given: Yes Hx Influenza Vaccination/Date Given: Yes Hx Pneumococcal Vaccination/Date Given: No Travel Risk - International Travel Have you traveled outside of the country in past 3 weeks: No - Emerging Infectious Disease Are you exhibiting symptoms associated with any current EIDs: Yes Symptoms: Cough: New Onset, Loss of taste or smell (Throat), Other (Please Comment) - Review of Systems Constitutional: No Symptoms Eyes: No Symptoms Ears, Nose, & Throat: Nose Congestion, Throat Pain Respiratory: Cough Cardiac: No Symptoms Abdominal/Gastrointestinal: No Symptoms Genitourinary Symptoms: No Symptoms Musculoskeletal: No Symptoms Skin: No Symptoms Neurological: No Symptoms Psychological: No Symptoms Endocrine: No Symptoms Hematologic/Lymphatic: No Symptoms Immunological/Allergic: No Symptoms All Other Systems: Reviewed and Negative - Past Medical History Pertinent Past Medical History: Yes Neurological History: No Pertinent History ENT History: No Pertinent History Cardiac History: No Pertinent History Respiratory History: Asthma, Pneumonia Endocrine Medical History: No Pertinent History Musculoskeletal History: Arthritis GI Medical History: No Pertinent History History: No Pertinent History Psycho-Social History: Anxiety, Depression Female Reproductive Disorders: No Pertinent History Other Medical History: fx rib - Past Surgical History Past Surgical History: Yes Neuro Surgical History: No Pertinent History Cardiac: No Pertinent History Respiratory: No Pertinent History Gastrointestinal: Cholecystectomy Genitourinary: No Pertinent History Musculoskeletal: Orthopedic Surgery Female Surgical History: No Pertinent History Other Surgical History: Spleen repaired, knee replacements, pt states fluid drained from lungs - Social History Smoking Status: Never smoker Exposure to second hand smoke: No Alcohol Use: None Drug Use: none Patient Lives Alone: No - Nursing Vital Signs Nursing Vital Signs: Initial Vital Signs Pulse Rate 104 H 04/26/24 13:04 Blood Pressure 163/89 04/26/24 13:04 O2 Sat by Pulse Oximetry 97 04/26/24 13:04 Pain Scale Pain Intensity 5 - Physical Exam General Appearance: no apparent distress, alert, anxiety Eye Exam: PERRL/EOMI, eyes nml inspection Ears, Nose, Throat Exam: normal ENT inspection, moist mucous membranes Neck Exam: normal inspection, non-tender, supple, full range of motion Respiratory Exam: normal breath sounds, lungs clear, airway intact, No chest tenderness, No respiratory distress Cardiovascular Exam: regular rate/rhythm, normal heart sounds, normal peripheral pulses Gastrointestinal/Abdomen Exam: soft, normal bowel sounds, No tenderness Pelvic Exam: not done Rectal Exam: not done Back Exam: normal inspection, normal range of motion, No CVA tenderness, No vertebral tenderness Extremity Exam: normal inspection, normal range of motion, pelvis stable Neurologic Exam: alert, oriented x 3, cooperative, getterer II-XII nml as tested, nml cerebellar function, nml station & gait, sensation nml Skin Exam: normal color, warm, dry Lymphatic Exam: No adenopathy SpO2 Interpretation: normal O2 Delivery: Room Air - Course Nursing assessment & vital signs reviewed: Yes Ordered Tests: Active Orders 24 hr Category Date Time Status ABDOMEN AND PELVIS W/0 CONTRAS [CT] Stat Exams 04/26/24 13:24 Taken CHEST 1 VIEW (PORTABLE) Stat Exams 04/26/24 13:24 Completed UA W/RFX UR CULTURE Stat Lab 04/26/24 13:43 Completed Lab/Rad Data: Laboratory Results 04/26/24 04/26/24 04/26/24 Range/Units 13:43 13:35 13:35 Urine Color Yellow (Yellow) Urine Appearance Clear (Clear) Urine pH 6.5 (4.6-8.0) Ur Specific [place] 1.010 (1.005-1.030) Urine Protein Negative (Negative) Urine Glucose (UA) Negative (Negative) mg/dL Urine Ketones Negative (Negative) Urine Blood Negative (Negative) Urine Nitrite Negative (Negative) Urine Bilirubin Negative (Negative) Urine Urobilinogen 0.2 (0.2) mg/dL Ur Leukocyte Esterase Trace A (Negative) U Hyaline Cast (Auto) NONE SEEN (0-2) /LPF Urine Microscopic RBC 0-2 (0-5) /HPF Urine Microscopic WBC 0-2 (0-5) /HPF Ur Epithelial Cells Rare (None Seen) /HPF Urine Bacteria None Seen (None Seen) /HPF Urine Culture Reflexed NO (NO) Influenza Type A Ag NEGATIVE (NEGATIVE) Influenza Type B Ag NEGATIVE (NEGATIVE) RSV (PCR) NEGATIVE (NEGATIVE) SARS-CoV-2 (PCR) NEGATIVE (NEGATIVE) Group A Strep Antibody NOT DETECTED (NEGATIVE) - Progress Air Movement: good Progress Note: 04/26/24 13:32 My medical decision making and the assignment of moderate complexity to this patient's medical issue today is based on review of the patient's past medical history, review of the patient's medication list, review of patient drug allergy list, history present illness and physical findings on examination. The workup in this patient includes urinalysis, CT scan of the abdomen pelvis without contrast, chest x-ray, viral swabs and group A strep test. Differential diagnosis includes but is not limited to viral illness, strep pharyngitis, acute intra-abdominal/pelvic process, pneumonia 04/26/24 13:59 I interpreted the preliminary report of the patient's chest x-ray. There are chronic changes noted. There is no evidence of any acute cardiopulmonary process. Final reading was performed by the radiologist. I reviewed the impression. The impression states nonacute chest with chronic features. 04/26/24 14:38 I interpreted the patient's laboratory data results. Based on the laboratory data results, the patient does not have any acute or emergent medical issues. Blood Culture(s) Obtained: No Counseled pt/family regarding: lab results, diagnosis, need for follow-up, rad results - Departure Departure Disposition: Home Clinical Impression: Pharyngitis, Sinusitis nasal Condition: Stable Critical Care Time: No Referrals: ARLEN DIANE NP [Primary Care Provider] - Follow up/PCP as directed Additional Instructions: Drink plenty of fluids. Take your medication as prescribed. Call your primary care provider and earth science technical officer tomorrow, 04/27/2024, to make arrangements for follow-up appointment for further evaluation and management and to be seen in the next 3 to 5 days. Prescriptions: Prednisone 10 mg [Deltasone 10 mg] 10 mg PO TID #12 tablet Hydrocodone/Acetaminophen [Hydrocodone-Acetamn 7.5-325/15] 5 ml PO Q8H PRN #60 ml MDD 15 ml PRN Reason: Cough
[2024-04-26 13:20] VITALS: RESP 20; TEMP 98.9
[2024-04-26 13:51] LABS: Appearance Clear (Clear); Bacteria None Seen /HPF (None Seen); Bilirubin Negative (Negative); Blood Negative (Negative); Epithelial Cells Rare /HPF (None Seen); Glucose, Urine Negative (Negative); Hyaline Casts NONE SEEN /LPF (0-2); Ketones Negative (Negative); Leukocyte Esterase Trace (Negative); Nitrite Negative (Negative); Ph 6.5 (4.6-8.0); Protein,Urine Dip Negative (Negative); RBC 0-2 /HPF (0-5); Urobilinogen 0.2 mg/dL (0.2); WBC 0-2 /HPF (0-5)
--- NOTE | 2024-04-26 13:55 | XRAY ---
Indication: Cough and congestion. Comparison: December 27, 2023 Portable chest unchanged again hyperinflated with left base pleural effusion/thickening and mild biapical pleural thickening. Remaining heart and lungs unremarkable. Bony thorax intact again with osteopenia, degenerative changes, dextroscoliosis, and old right rib fractures/hardware. Impression: Continued nonacute chest with chronic features.
[2024-04-26 13:57] LABS: ADD URINE CULTURE? NO (NO)
[2024-04-26 14:21] LABS: INFLUENZA A NEGATIVE (NEGATIVE); INFLUENZA B NEGATIVE (NEGATIVE); RESPIRATORY SYNCTIAL VIRUS NEGATIVE (NEGATIVE); SARS-CoV-2 Xpert Express NEGATIVE (NEGATIVE)
[2024-04-26 14:41] VITALS: O2SAT 96
[2024-04-26 15:15] VITALS: BP 121/58; PULSE 84
--- NOTE | 2024-04-26 15:15 | XRAY ---
Indication: Left lower quadrant abdominal pain. Multiple contiguous axial images obtained through the abdomen and pelvis without contrast. Comparison: None Lung bases demonstrates incompletely visualized moderate left pleural effusion/thickening with posterior subsegmental atelectasis. Right lung base demonstrates scattered peripheral subsegmental atelectasis/scarring. Heart not enlarged. 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 Noncontrasted stomach and bowel loops appear nonobstructed. Appendix not visualized. Moderate diffuse scattered colonic fecal debris throughout. Previous cholecystectomy. Left upper kidney demonstrates 1.5 cm cortical cyst. A few nonobstructing bilateral renal punctate calculi. No free fluid/air. Remaining liver, pancreas, spleen, adrenal glands, kidneys, ureters, bladder, and uterus are unremarkable for noncontrast exam. Mild scattered aortoiliac calcifications without AAA. Osseous structures intact with osteopenia, mild/moderate multilevel thoracolumbar degenerative spondylosis, 5 mm anterolisthesis L4 on L5, mild levorotoscoliosis centered at L3, degenerative changes both SI joints, mild degenerative changes both hips, old posterior right acetabulum fracture. Lower chest demonstrates incompletely visualized old right rib fracture hardware. Impression: 1. Left lung base pleural effusion/thickening with subsegmental atelectasis. Right lung base atelectasis/scarring. 2. 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 3. Moderate diffuse fecal stasis. 4. Chronic findings including nonobstructing bilateral renal punctate calculi, left renal cyst, arteriosclerotic disease, and chronic bony findings.
== END 2024-04-26 15:28 | disposition home or self-care (01) ==
LOC: ED 12:49
DX: J02.9 Acute pharyngitis, unspecified (principal); J32.8 Other chronic sinusitis; R09.81 Nasal congestion; R05.9 Cough, unspecified; R10.32 Left lower quadrant pain; Z79.52 Long term (current) use of systemic steroids; Z79.891 Long term (current) use of opiate analgesic; Z79.899 Other long term (current) drug therapy
CPT/HCPCS: 0241U; 71045; 74176; 81001; 87651; 99283

== ENCOUNTER 2025-03-28 15:42 | Emergency (ER) | payer MEDICARE, OTHER ==
[2025-03-28 16:03] VITALS: TEMP 98.7
[2025-03-28] MEDS ORDERED: Zofran 4 MG/2 ML VIAL ONE (16:30)
[2025-03-28] MEDS ORDERED: BABY ASPIRIN 81 MG CHEW ONE (16:31)
[2025-03-28] MEDS ORDERED: MORPHINE SULFATE 2 MG INJ ONE (16:31)
[2025-03-28] MEDS: BABY ASPIRIN 81 MG CHEW PO ONE (16:32)
[2025-03-28] MEDS: MORPHINE SULFATE 2 MG INJ IV ONE (16:32)
[2025-03-28] MEDS: Zofran 4 MG/2 ML VIAL IV ONE (16:33)
[2025-03-28 16:42] LABS: BASOPHIL % 0.6 % (0.1-1.2); Basophil (Absolute #) 0.03 x10^3/uL (0.01-0.08); Eosinophil (Absolute #) 0.10 x10^3/uL (0.04-0.36); Hematocrit 40.5 % (34.1-44.9); Hemoglobin 14.0 g/dL (11.2-15.7); IMMATURE GRAN # 0.01 x10^3u/L (0.001-0.031); IMMATURE GRAN % 0.2 % (0.001-0.429); Lymphocyte (Absolute #) 1.41 x10^3/uL (1.18-3.74); Mean Corpuscular Hemoglobin 31.5 pg (25.6-32.2); Mean Corpuscular Hgb Concent. 34.6 g/dL (32.2-35.5); Monocyte (Absolute #) 0.63 x10^3/uL (0.24-0.86); NUCLEATED RBC # 0.00 x10^3u/L (0.00-0.012); NUCLEATED RBC % 0.0 % (0.00-0.2); Platelet Count 117 x10^3/uL (182-369); Red Blood Count 4.45 x10^6/uL (3.93-5.22); White Blood Count 5.2 x10^3/uL (3.98-10.04)
--- NOTE | 2025-03-28 16:56 | ERPHSYRPT ---
- History of Present Illness Time Seen by Provider: 03/28/25 15:49 Source: patient, family Exam Limitations: no limitations Patient Subjective Stated Complaint: pt states that she was at Dr. Mccray's office and he told her that she had a fast heart rate and needs to go to the er Triage Nursing Assessment: pt came into the er via wheelchair; pt transfer to cot per self; pt is axo x4; pt is anxious and tearful; c/o tachycardia; pt denies chest pain; clear apical heart tone; strong claus radial pulse; stong pedal pulse; BLE edema present; clear lung sounds in all lobes; dry hacking cough present; skin PDW; hypertensive; tachycardic Physician History: 80-year-old female with history of congestive heart failure, hypertension, chronic back pain presented to the ER from primary care office with high heart rate. Patient reports she went to see primary care because of having low back pain for over a month and wanted cortisone shot but it was found out her heart her heart rate was in 180s. Patient report she felt dizzy lightheaded during that time but it started to improve and currently heart rate in 110s with no chest pain palpitations or shortness of breath. Patient denies any feeling shortness of breath even when her heart rate was in 180s. Denies any fever chills or cough. Patient reported her pain started a month ago on the left side and no is on the right lower back with no radiation to lower extremities with no weakness or saddle anesthesia. Allergies/Adverse Reactions: No Known Drug Allergies Allergy (Verified 03/28/25 15:47) Home Medications: Albuterol Sulfate [Proair Respiclick] 90 mcg IH Q6H PRN PRN 02/13/21 [History] Bumetanide 1 mg [Bumex 1 mg] 1 mg PO DAILY 02/13/21 [History] Potassium Chloride Tab* [Klor Con 10 MEQ] 10 meq PO DAILY 02/13/21 [History] buPROPion HCL [Wellbutrin Xl] 450 mg PO DAILY 02/13/21 [History] Fluticasone/Umeclidin/Vilanter [Trelegy Ellipta 100-62.5-25] 1 puff IH DAILY 09/23/23 [History] Omeprazole 40 mg PO DAILY 09/23/23 [History] Glimepiride 1 mg PO DAILY 03/28/25 [History] Hx Tetanus, Diphtheria Vaccination/Date Given: No (unsure) Hx Influenza Vaccination/Date Given: No Hx Pneumococcal Vaccination/Date Given: No (unsure) Travel Risk - International Travel Have you traveled outside of the country in past 3 weeks: No - Emerging Infectious Disease Are you exhibiting symptoms associated with any current EIDs: No Symptoms: Cough: New Onset, Loss of taste or smell (Throat), Other (Please Comment) - Review of Systems Constitutional: No Symptoms Ears, Nose, & Throat: No Symptoms Respiratory: No Symptoms Cardiac: Palpitations Abdominal/Gastrointestinal: No Symptoms Genitourinary Symptoms: No Symptoms Musculoskeletal: Back Pain Skin: No Symptoms Neurological: No Symptoms Psychological: No Symptoms Endocrine: No Symptoms Hematologic/Lymphatic: No Symptoms - Past Medical History Pertinent Past Medical History: Yes Neurological History: No Pertinent History ENT History: Cataracts Cardiac History: Congestive Heart Failure Respiratory History: Asthma, COPD, Pneumonia Endocrine Medical History: Diabetes Type II Musculoskeletal History: Arthritis, Fractures GI Medical History: Diverticulitis History: No Pertinent History Psycho-Social History: Anxiety, Depression Female Reproductive Disorders: No Pertinent History Other Medical History: fx rib - Past Surgical History Past Surgical History: Yes Neuro Surgical History: No Pertinent History Cardiac: No Pertinent History Respiratory: No Pertinent History Gastrointestinal: Cholecystectomy Genitourinary: No Pertinent History Musculoskeletal: Joint Replacement Female Surgical History: No Pertinent History Other Surgical History: RIGHT KNEE REPLACEMENT. LEFT KNEE PARTIAL REPLACEMNET - Social History Smoking Status: Former smoker Exposure to second hand smoke: No Drug Use: none - Social Determinants of Health Will the patient participate in the screening: Yes Do you worry about a steady place to live?: No Do you have any problems with any of the following?: No known problems In the past 12 months,have you had to go without utilities?: No Transportation Issues: No Has anyone in your support network made you feel unsafe?: No Have you or anyone in your house had to go w/o enough food: No - Nursing Vital Signs Nursing Vital Signs: Initial Vital Signs Pulse Rate 115 H 03/28/25 15:46 Respiratory Rate 15 03/28/25 15:46 Blood Pressure 161/102 03/28/25 15:46 O2 Sat by Pulse Oximetry 95 03/28/25 15:46 Pain Scale Pain Intensity 0 - Physical Exam General Appearance: no apparent distress Eye Exam: PERRL/EOMI Ears, Nose, Throat Exam: normal ENT inspection Neck Exam: normal inspection, full range of motion Respiratory Exam: normal breath sounds, lungs clear Cardiovascular Exam: normal heart sounds, tachycardia Gastrointestinal/Abdomen Exam: soft, normal bowel sounds, No tenderness Back Exam: normal inspection, decreased range of motion, muscle spasm, point tenderness (Bilateral sacroiliac area. No midline tenderness) Extremity Exam: normal inspection, normal range of motion Neurologic Exam: alert, oriented x 3, cooperative, flyer builder II-XII nml as tested, sensation nml, No normal mood/affect (Anxious), No motor deficits Skin Exam: normal color SpO2 Interpretation: normal SpO2: 95 O2 Delivery: Room Air - Course EKG Interpreted by Me: RATE (111), Sinus Tach, NORMAL AXIS, NORMAL INTERVALS, Non-specific ST Changes Ordered Tests: Medication Summary Discontinued Medications Generic Name Dose Route Start Last Admin Trade Name Freq PRN Reason Stop Dose Admin Aspirin 324 mg 03/28/25 16:16 03/28/25 16:32 Aspirin 81 Mg Tab.Chew PO 03/28/25 16:17 324 mg STAT ONE Administration Aspirin Confirm 03/28/25 16:31 Aspirin 81 Mg Tab.Chew Administered 03/28/25 16:32 Dose 324 mg .ROUTE .STK-MED ONE Morphine Sulfate 2 mg 03/28/25 16:16 03/28/25 16:32 Morphine Sulfate 2 Mg/Ml Inj IV 03/28/25 16:17 2 mg STAT ONE Administration Morphine Sulfate Confirm 03/28/25 16:31 Morphine Sulfate 2 Mg/Ml Inj Administered 03/28/25 16:32 Dose 2 mg .ROUTE .STK-MED ONE Ondansetron HCl 4 mg 03/28/25 16:16 03/28/25 16:33 Ondansetron Hcl 4 Mg/2 Ml Vial IV 03/28/25 16:17 4 mg STAT ONE Administration Ondansetron HCl Confirm 03/28/25 16:30 Ondansetron Hcl 4 Mg/2 Ml Vial Administered 03/28/25 16:31 Dose 4 mg .ROUTE .STK-MED ONE Lab/Rad Data: Laboratory Result Diagrams 03/28/25 16:40 03/28/25 16:40 Laboratory Results 03/28/25 03/28/2503/28/25 Range/Units 19:28 16:40 16:40 WBC (3.98-10.04) x10^3/uL RBC (3.93-5.22) x10^6/uL Hgb (11.2-15.7) g/dL Hct (34.1-44.9) % MCV (79.4-94.8) fL MCH (25.6-32.2) pg MCHC (32.2-35.5) g/dL RDW (11.7-14.4) % Plt Count (182-369) x10^3/uL MPV (9.4-12.3) fL Gran % (34.0-71.1) % Immature Gran % (Auto) (0.001-0.429) % Nucleat RBC Rel Count (0.00-0.2) % Eos # (Auto) (0.04-0.36) x10^3/uL Immature Gran # (Auto) (0.001-0.031) x10^3u/L Absolute Lymphs (auto) (1.18-3.74) x10^3/uL Absolute Monos (auto) (0.24-0.86) x10^3/uL Absolute Nucleated RBC (0.00-0.012) x10^3u/L Lymphocytes % (19.3-51.7) % Monocytes % (4.7-12.5) % Eosinophils % (0.7-5.8) % Basophils % (0.1-1.2) % Absolute Granulocytes (1.56-6.13) x10^3/uL Basophils # (0.01-0.08) x10^3/uL Sodium 140 (135-145) mmol/L Potassium 4.1 (3.5-5.1) mmol/L Chloride 103 (98-107) mmol/L Carbon Dioxide 29 (22-30) mmol/L Anion Gap 12.7 (5-15) MEQ/L BUN 18 H (7-17) mg/dL Creatinine 0.72 (0.52-1.04) mg/dL Estimated GFR 84.0 ML/MIN Glucose 88 (74-106) mg/dL Calcium 9.8 (8.4-10.2) mg/dL Total Bilirubin 0.30 (0.2-1.3) mg/dL AST 31 (14-36) U/L ALT 31 (0-35) U/L Alkaline Phosphatase 131 H (38-126) U/L Troponin I < 0.012 < 0.012 (0.000-0.033) ng/mL NT-Pro-B Natriuret Pep 46.2 (<300) pg/mL Serum Total Protein 7.3 (6.3-8.2) g/dL Albumin 4.3 (3.5-5.0) g/dL 03/28/25 Range/Units 16:40 WBC 5.2 (3.98-10.04) x10^3/uL RBC 4.45 (3.93-5.22) x10^6/uL Hgb 14.0 (11.2-15.7) g/dL Hct 40.5 (34.1-44.9) % MCV 91.0 (79.4-94.8) fL MCH 31.5 (25.6-32.2) pg MCHC 34.6 (32.2-35.5) g/dL RDW 14.1 (11.7-14.4) % Plt Count 117 L (182-369) x10^3/uL MPV 10.2 (9.4-12.3) fL Gran % 58.1 (34.0-71.1) % Immature Gran % (Auto) 0.2 (0.001-0.429) % Nucleat RBC Rel Count 0.0 (0.00-0.2) % Eos # (Auto) 0.10 (0.04-0.36) x10^3/uL Immature Gran # (Auto) 0.01 (0.001-0.031) x10^3u/L Absolute Lymphs (auto) 1.41 (1.18-3.74) x10^3/uL Absolute Monos (auto) 0.63 (0.24-0.86) x10^3/uL Absolute Nucleated RBC 0.00 (0.00-0.012) x10^3u/L Lymphocytes % 27.1 (19.3-51.7) % Monocytes % 12.1 (4.7-12.5) % Eosinophils % 1.9 (0.7-5.8) % Basophils % 0.6 (0.1-1.2) % Absolute Granulocytes 3.02 (1.56-6.13) x10^3/uL Basophils # 0.03 (0.01-0.08) x10^3/uL Sodium (135-145) mmol/L Potassium (3.5-5.1) mmol/L Chloride (98-107) mmol/L Carbon Dioxide (22-30) mmol/L Anion Gap (5-15) MEQ/L BUN (7-17) mg/dL Creatinine (0.52-1.04) mg/dL Estimated GFR ML/MIN Glucose (74-106) mg/dL Calcium (8.4-10.2) mg/dL Total Bilirubin (0.2-1.3) mg/dL AST (14-36) U/L ALT (0-35) U/L Alkaline Phosphatase (38-126) U/L Troponin I (0.000-0.033) ng/mL NT-Pro-B Natriuret Pep (<300) pg/mL Serum Total Protein (6.3-8.2) g/dL Albumin (3.5-5.0) g/dL - Progress Progress: improved Progress Note: 03/28/25 20:12 Differential diagnosis: Acute coronary syndrome, dysrhythmias/A-fib/SVT/VT, pneumonia, pneumothorax, pulmonary embolism 80-year-old is evaluated in the ER for tachycardia earlier at primary care office. Patient heart rate is in 110s on presentation in the ER sinus tachycardia with no ST elevations. Part of tachycardia I believe is secondary to back pain and I have given her 2 mg morphine and her pain is improved, tachycardia also improved and heart rate in the 80s on reevaluation. Has normal white count, chemistries fairly unremarkable and negative troponins x 2. Chest x-ray is negative for any acute cardiopulmonary finding interpreted by me followed by official read. Patient is not having any chest pain difficulty breathing or palpitations while in the ER. I am not sure what rhythm was it when she was at primary care office. I have offered her observation admission but she wants to go home, agreed with second troponin which turns out to be negative as well. I would put her on a heart monitor/Bardy for 5 days to see if she has any underlying rhythm abnormality. Recommended outpatient follow-up with primary care and cardiology. Back pain is more in the sacroiliac area with no radiation, no midline tenderness, no cauda equina symptoms and negative neuroexam in lower extremities. I believe patient has strain. Discussed signs symptoms of worsening needing return to ER which she seemed understanding. Stable for discharge. Complexity of problems addressed: Moderate acute Complexity of data reviewed/analyzed: Moderate to extensive Risk of complication: Low to moderate Counseled pt/family regarding: lab results, diagnosis, need for follow-up, rad results Medical Desision Making - Independent Historian Additional History obtained from: Spouse - Diagnostic Testing Diagnostic test were ordered, analyzed, and reviewed by me: Yes Radiological Interpretation: Interpreted by me - Risk of complications The pt has a mod risk of morbidity or mortality based on: Need for prescription drug management - Departure Departure Disposition: Home Clinical Impression: Heart palpitations, Low back strain Condition: Stable Critical Care Time: No Referrals: CARLOS MCCRAY MD [Primary Care Provider, INTERNAL MEDICINE] - Follow up with PCP 1 day Instructions: Palpitations (DC) Additional Instructions: Follow-up with your primary care for reevaluation. Also follow-up with cardiology, call for appointment. Return to ER if again having chest pain palpitation/shortness of breath/worsening of low back pain etc.
--- NOTE | 2025-03-28 16:58 | XRAY ---
Indication: Palpitations. Comparison: December 26, 2023 Portable chest unchanged again hyperinflated with left base pleural effusion/thickening and mild biapical pleural thickening. Remaining heart and lungs unremarkable. Bony thorax intact again with osteopenia, degenerative changes, dextroscoliosis, and old right rib fractures/hardware. Impression: Continued nonacute chest with chronic features.
[2025-03-28 17:07] LABS: Calcium 9.8 mg/dL (8.4-10.2); Carbon Dioxide 29.0 mmol/L (22-30); Creatinine 1 0.72 mg/dL (0.52-1.04); EST GLOMERULAR FILTRATION RATE 84.0 ML/MIN; Glucose 88.0 mg/dL (74-106); NT PRO BNPII 46.2 pg/mL (<300); Potassium 4.1 mmol/L (3.5-5.1); SGOT/AST 31.0 U/L (14-36); SGPT/ALT 31.0 U/L (0-35); Total Protein 7.3 g/dL (6.3-8.2)
[2025-03-28 20:08] VITALS: BP 135/63; PULSE 85; RESP 17
[2025-03-28 20:17] VITALS: O2SAT 95
== END 2025-03-28 20:33 | disposition home or self-care (01) ==
LOC: ED 15:42
DX: R00.2 Palpitations (principal); S39.012A Strain of muscle, fascia and tendon of lower back, initial encounter; I11.0 Hypertensive heart disease with heart failure; I50.9 Heart failure, unspecified; E11.9 Type 2 diabetes mellitus without complications; Z79.84 Long term (current) use of oral hypoglycemic drugs; Z79.899 Other long term (current) drug therapy